=== PATIENT | female | born 1960 | race Caucasian/White ===

== ENCOUNTER → 2016-04-26 | Outpatient (CLI) | payer BC ==
[~2016-04-26] MED LIST: ALPR0.5T PO; CIPR-255 PO; DICY10CA55 PO; FAMO20TA9 PO; IBUP-103 PO; LISI20TA3 PO; METO50TA7 PO; METR-163 PO; MOME6000 INH; PANT40TA PO
--- NOTE | 2016-04-29 14:54 | MAMMOGRAPHY REPORT ---
BILATERAL DIGITAL SCREENING MAMMOGRAM TOMOSYNTHESIS WITH CAD: 04/26/2016 CLINICAL HISTORY: Routine screening. Patient has no complaints. TECHNIQUE: Breast tomosynthesis in addition to standard 2D mammography was performed. Current study was also evaluated with a Computer Aided Detection (CAD) system. COMPARISON: Comparison is made to exams dated: 04/25/2015 mammogram, 06/25/2013 mammogram, 06/24/2012 poncho mogram, 07/25/2010 mammogram, 07/24/2009 mammogram - [facility], and 07/21/2008. BREAST COMPOSITION: The tissue of both breasts is heterogeneously dense, which may obscure small ma sses. FINDINGS: No suspicious masses, calcifications, or areas of architectural distortion are noted in e ither breast. There has been no significant interval change compared to prior exams. IMPRESSION: ACR BI-RADS CATEGORY 1: NEGATIVE There is no mammographic evidence of malignancy. A 1 year screening mammogram is recommended. The p atient will receive written notification of the results. Approximately 10% of breast cancers are not detected with mammography. A negative mammographic repor t should not delay biopsy if a clinically suggestive mass is present. Linda Sandoval M.D. ah/:04/26/2016 16:27:03 Senior Painter: Ming CHOU(R)(M), [facility] letter sent: Normal 1/2 BI-RADS Code: ACR BI-RADS Category 1: Negative
== END | disposition home or self-care (01) ==
LOC: C.MAMM 15:29
PROVIDERS: ATTEND Family Medicine
DX: Z12.31 Encounter for screening mammogram for malignant neoplasm of breast (principal)

== ENCOUNTER 2016-05-06 09:06 | Inpatient (IN) | payer BC ==
[~2016-05-06] VITALS: Ht 160 cm; Wt 65.4 kg
[2016-05-06 09:42] LABS: URINE APPEARANCE CLEAR (CLEAR); URINE BILIRUBIN NEG (NEG); URINE COLOR DK YELLOW; URINE EPITHELIAL CELL AUTO >30 /lpf (0-5); URINE NITRITE NEG (NEG); URINE PH 5.5 (4.5-7.5); URINE SPECIFIC GRAVITY 1.023 (1.000-1.030); UROBILINOGEN NEG (NEG); ZZUR CULT IF INDIC CLEAN CATCH YES
[2016-05-06 09:43] LABS: MANUAL MICROSCOPIC REQUIRED? NO; REVIEW REQ? NO
[2016-05-06] MEDS ORDERED: METO50TA7 PO (09:49)
[2016-05-06] MEDS ORDERED: LISI20TA3 PO (09:49)
[2016-05-06 09:58] LABS: BASO % 0.1 %; BASO ABS # 0.02 K/uL (0-0.2); COMPLETE YES; EOS % 1.2 %; HEMATOCRIT 42.8 % (37-47); IG% 0.3 %; LYMPH % 15.3 %; MEAN CELL VOLUME 85.6 fL (80-100); MEAN CORPUSCULAR HEMOGLOBIN 29.2 pg (25-34); MEAN CORPUSCULAR HGB CONC 34.1 g/dl (32-36); MEAN PLATELET VOLUME 9.6 fL (7.4-10.4); MONO % 6.6 %; NEUT % 76.5 %; PLATELET COUNT 425 K/uL (130-400); WHITE BLOOD COUNT 19.61 K/uL (4.8-10.8)
[2016-05-06] MEDS ORDERED: OPTIRAY 320 IV PRN (10:15)
[2016-05-06 10:18] LABS: BUN/CREATININE RATIO 17.6 (10-20); CALCIUM 9.1 mg/dl (8.5-10.1); CREATININE 0.92 mg/dl (0.60-1.20); POTASSIUM 3.9 mmol/L (3.5-5.1)
[2016-05-06 10:21] LABS: ALB/GLOB RATIO 0.7 (0.9-2)
--- NOTE | 2016-05-06 12:25 | DIAGNOSTIC IMAGING REPORT ---
CT OF THE ABDOMEN AND PELVIS WITH CONTRAST CLINICAL HISTORY: Lower abdominal pain and cramping. COMPARISON STUDY: None. TECHNIQUE: Following IV administration of 94 mL of Optiray-320, axial images of the abdomen and pelvis were obtained from the lung bases to the proximal femurs. Images were reviewed in the axial, sagittal, and coronal planes. IV contrast was administered without complication. CT DOSE: 321.53 mGy.cm FINDINGS: Lung bases are clear. The liver, spleen, adrenal glands, pancreas and right kidney are normal. A 6 mm hypodense lesion within the upper pole of the left kidney is too small to characterize but likely benign. There is no biliary or pancreatic ductal dilatation. There is a splenule. There is no evidence for a bowel obstruction. There is extensive sigmoid diverticulosis. There is moderate wall thickening of the mid sigmoid colon with moderate adjacent infiltration. Note is made of a 2.2 x 1.5 cm rim-enhancing fluid collection within the superior wall of the sigmoid colon. This is consistent with an intramural abscess. There is no free air. Skeletal structures are unremarkable. IMPRESSION: Acute sigmoid diverticulitis with an associated 2.2 x 1.5 cm intramural abscess within the mid sigmoid colon. Moderate inflammation. No free air. Electronically signed by: Leif Celeste M.D. 05/06/2016 11:33 AM Dictated Date/Time: 05/06/2016 11:24 AM
[2016-05-06] MEDS ORDERED: MoRPHine SULFATE 4 MG/ML 1 ML CARP\\VIAL IV STA (12:31)
[2016-05-06] MEDS ORDERED: ONDANSETRON INJ 2 MG/ML 2 ML VIAL IV STA (12:31)
[2016-05-06] MEDS ORDERED: SODIUM CHLORIDE 0.9% 1000ML 1,000 ML IV STA (12:31)
[2016-05-06] MEDS ORDERED: CIPROFLOXACIN 400MG / 200ML D5W IV STA (12:39)
[2016-05-06] MEDS ORDERED: METRONIDAZOLE 500MG / 100ML NSS IV STA (12:39)
[2016-05-06] MEDS ORDERED: ENOXAPARIN 40 MG/0.4 ML SYR SQ SCH (13:45)
[2016-05-06] MEDS ORDERED: DICY10CA55 PO (13:52)
[2016-05-06] MEDS ORDERED: ALPR0.5T PO (13:52)
[2016-05-06] MEDS ORDERED: MOME6000 INH (13:52)
--- NOTE | 2016-05-06 14:10 | History and Physical ---
History & Physical Date & Time of Service: May 06, 2016 at 13:54 Chief Complaint: Lower Intestinal Pain W/ Lower Back Pain Primary Care Physician: Magdiel Zavaleta III, M.D. History of Present Illness Source: patient This is a 55 y/o female with PMHx of HTN and Dyslipidemia who presents to the ED c/o worsening abd pain x 2 days. Pt reports that 2 days ago she developed intermittent "crampy" lower abd pain that did not radiate anywhere. This morning the pain worsened to a constant 6/10 crampy pain with intermittent stabbing pains. She has been eating a regular diet but has noticed that she gets nauseated after eating. BMs have been normal. Pt has never had sxs like this before. Last colonoscopy from 04/2014 was normal. Pt denies fever/chills, diaphoresis, chest pain, SOB, vomiting, hematochezia, melena, bladder issues, LE edema ,calf pain, lightheadedness/dizziness. In the ED, vitals are stable. Pt is afebrile with leukocytosis>19k. CT abd/pelvis + acute diverticulitis with small intramural abscess. Pt is stable and will be admitted for further evaluation and treatment. Past Medical/Surgical History Medical Problems: (1) Dyslipidemia Status: Chronic (2) GERD (gastroesophageal reflux disease) Status: Chronic (3) HTN (hypertension) Status: Chronic Surgical Problems: (1) H/O wisdom tooth extraction Status: Resolved (2) History of tubal ligation Status: Resolved Social History Smoking Status: Former Smoker (10 pack year history; quit 30 years ago) Alcohol Use: none Drug Use: none Marital Status: Housing status: lives with family Multi-Drug Resistant Organisms History of MDRO: No Allergies Coded Allergies: No Known Allergies (Verified , 05/06/16) Home Medications Scheduled Lisinopril (Prinivil), 20 MG PO HS Metoprolol Succ (Toprol Xl) (Toprol-Xl), 75 MG PO HS Mometasone Furoate (Nasal) (Mometasone Furoate), 2 SPRAYS INH BID Scheduled PRN Alprazolam (Xanax), 0.5 MG PO TID PRN for Anxiety Dicyclomine Hcl (Bentyl), 10 MG PO QID PRN for abdominal pain Review of Systems Constitutional: No chills, No fatigue, No fever, No sweats, No weakness Eyes: No worsening of vision Respiratory: No cough, No shortness of breath Cardiovascular: No chest pain, No claudication, No edema Abdomen: + nausea, + pain, No GI bleeding, No constipation, No diarrhea, No vomiting Musculoskeletal: No calf pain, No swelling Genitourinary - Female: No dysuria Neurologic: No weakness Psychiatric: No depression symptoms Endocrine: No fatigue Hematologic / Lymphatic: No abnormal bleeding/bruising Integumentary: No new/changing skin lesions Physical Exam Vital Signs Date Time Temp Pulse Resp B/P Pulse Ox O2 Delivery O2 Flow Rate FiO2 05/06/16 12:45 86 18 141/80 96 Room Air 05/06/16 10:48 74 16 144/88 99 Room Air 05/06/16 09:12 36.7 87 18 121/71 99 Room Air General Appearance: WD/WN, no apparent distress, + pertinent finding (Pt is laying in bed with at bedside) Head: normocephalic, atraumatic Eyes: normal inspection ENT: hearing grossly normal Neck: supple Respiratory/Chest: chest non-tender, lungs clear, normal breath sounds, no respiratory distress Cardiovascular: regular rate, rhythm, no edema, no murmur Abdomen/GI: normal bowel sounds, soft, + tenderness (diffuse; lower>upper) Back: normal inspection Extremities/Musculoskelatal: normal inspection, no calf tenderness, no pedal edema Neurologic/Psych: alert, normal mood/affect, oriented x 3 Skin: normal color, warm/dry Diagnostics Laboratory Results Results Past 24 Hours Test 05/06/16 09:25 05/06/16 13:00 Range/Units White Blood Count 19.61 4.8-10.8 K/uL Red Blood Count 5.00 4.2-5.4 M/uL Hemoglobin 14.6 12.0-16.0 g/dL Hematocrit 42.8 37-47 % Mean Corpuscular Volume 85.6 80-100 fL Mean Corpuscular Hemoglobin 29.2 25-34 pg Mean Corpuscular Hemoglobin Concent 34.1 32-36 g/dl Platelet Count 425 130-400 K/uL Mean Platelet Volume 9.6 7.4-10.4 fL Neutrophils (%) (Auto) 76.5 % Lymphocytes (%) (Auto) 15.3 % Monocytes (%) (Auto) 6.6 % Eosinophils (%) (Auto) 1.2 % Basophils (%) (Auto) 0.1 % Neutrophils # (Auto) 14.99 1.4-6.5 K/uL Lymphocytes # (Auto) 3.00 1.2-3.4 K/uL Monocytes # (Auto) 1.30 0.11-0.59 K/uL Eosinophils # (Auto) 0.24 0-0.5 K/uL Basophils # (Auto) 0.02 0-0.2 K/uL RDW Standard Deviation 41.9 36.4-46.3 fL RDW Coefficient of Variation 13.3 11.5-14.5 % Immature Granulocyte % (Auto) 0.3 % Immature Granulocyte # (Auto) 0.06 0.00-0.02 K/uL Urine Color DK YELLOW Urine Appearance CLEAR CLEAR Urine pH 5.5 4.5-7.5 Urine Specific [place] 1.023 1.000-1.030 Urine Protein TRACE NEG Urine Glucose (UA) NEG NEG Urine Ketones NEG NEG Urine Occult Blood 1+ NEG Urine Nitrite NEG NEG Urine Bilirubin NEG NEG Urine Urobilinogen NEG NEG Urine Leukocyte Esterase NEG NEG Urine WBC (Auto) 1-5 0-5 /hpf Urine RBC (Auto) 5-10 0-4 /hpf Urine Hyaline Casts (Auto) 1-5 0-5 /lpf Urine Epithelial Cells (Auto) >30 0-5 /lpf Urine Bacteria (Auto) 1+ NEG Sodium Level 139 136-145 mmol/L Potassium Level 3.9 3.5-5.1 mmol/L Chloride Level 103 98-107 mmol/L Carbon Dioxide Level 24 21-32 mmol/L Anion Gap 12.0 3-11 mmol/L Blood Urea Nitrogen 16 7-18 mg/dl Creatinine 0.92 0.60-1.20 mg/dl Est Creatinine Clear Calc Drug Dose 63.6 ml/min Estimated GFR () 81.8 Estimated GFR (Non- 70.6 BUN/Creatinine Ratio 17.6 10-20 Random Glucose 88 70-99 mg/dl Calcium Level 9.1 8.5-10.1 mg/dl Total Bilirubin 0.3 0.2-1 mg/dl Aspartate Amino Transf (AST/SGOT) 21 15-37 U/L Alanine Aminotransferase (ALT/SGPT) 28 12-78 U/L Alkaline Phosphatase 85 45-117 U/L Total Protein 8.1 6.4-8.2 gm/dl Albumin 3.3 3.4-5.0 gm/dl Globulin 4.8 2.5-4.0 gm/dl Albumin/Globulin Ratio 0.7 0.9-2 Lipase 175 73-393 U/L Lactic Acid Level 0.7 0.4-2.0 mmol/L Microbiology Results 05/06/16 Urine Culture, Received Pending Diagnostic Radiology CT ABD/PELVIS IMPRESSION: Acute sigmoid diverticulitis with an associated 2.2 x 1.5 cm intramural abscess within the mid sigmoid colon. Moderate inflammation. No free air. Impression Assessment and Plan Diverculitis, ACUTE DIVERTICULITIS/INTRAMURAL ABSCESS pt presents with abd pain assoc with nausea -admit to med/surg -pt is afebrile with leukocytosis>19k -CT abd/pelvis + acute sigmoid diverticulitis with 2.2 x 1.5 cm intramural abscess -cont IVF and Cipro/Flagyl -morphine PRN pain -clear liquid diet -consult surgery, Dr. Mallory-pending input -pt does not appear septic -monitor HTN -BP stable -cont lisinopril and metoprolol -monitor DYSLIPIDEMIA -diet controlled DVT PROPHYLAXIS -subq Lovenox DISPO -Pt seen in collaboration with Dr. Esposito. Please see his addendum for further details. Thanks! ATTENDING NOTE Patient seen & examined at bedside. Reviewed above History/Physical and confirmed the findings in person. Patient comes to ED with worsening abdominal pain with nausea. CT Abdomen/Pelvis shows Sigmoid Diverticulitis with abscess. Case discussed with Dr. Mallory (Surgery) by ED physician and he will follow the patient as advanced manufacturing consultant. Admit to Medical floor. Started Cipro & Flagyl. Pain medication as needed. Patient is FULL CODE. DVT Prophylaxis with SCDs. Patient will be followed by Dr. Rueda. Dennis Esposito MD Level of Care Med/Surg VTE Prophylaxis VTE Risk Assessment Done? Y/N: Yes Risk Level: Low Given or contraindicated: SCD's ( may neeed Surgical intervention)
[2016-05-06] MEDS: MoRPHine SULFATE 4 MG/ML 1 ML CARP\\VIAL IV PRN ×3 (14:26→21:37)
[2016-05-06 15:10] VITALS: BP 137/79; PULSE 84; TEMP 37.2; O2SAT 97
[2016-05-06 15:15] VITALS: Ht 160 cm; Wt 65.4 kg
--- NOTE | 2016-05-06 16:04 | Pre-Operative Consultation ---
History General Date of Service: May 06, 2016. HPI HPI: The patient is a 55 year old female being seen for complicated sigmoid diverticulitis. She was admitted with worsening abdominal pain x 2 days. Pt reports that 2 days ago she developed intermittent "crampy" lower abd pain that did not radiate anywhere. This morning the pain worsened with LLQ stabbing pains. She has nausea after eating. Last colonoscopy from 04/2014 was normal. Pt denies fever/chills, diaphoresis, chest pain, SOB, vomiting, hematochezia, melena, bladder issues, LE edema ,calf pain, lightheadedness/dizziness. Historian: patient Procedure Urgency: Acute Risk Assessment Daily beta chance use?: Yes Beta Chance Details Indication Beta Chance use: hypertension Medical & Surgical History Past Medical History: anxiety, GERD, high cholesterol, hypertension Past Surgical History: tubal ligation Family History Family History: no pertinent family hx Social History Smoking Status: Former Smoker (10 pack year history; quit 30 years ago) Drug Use: none Marital status: Housing status: lives with family Allergies Allergies: Coded Allergies: No Known Allergies (Verified , 05/06/16) Medications Current Inpatient Medications Current Inpatient Medications Medications (Trade) Dose Ordered Sig/Ignacio Route Start Time Stop Time Status Last Admin Dose Admin Ioversol (Optiray 320) 125 ml UD PRN IV 05/06/16 10:15 05/10/16 10:14 Acetaminophen (Tylenol Tab) 650 mg Q4H PRN PO 05/06/16 13:45 06/05/16 13:44 Ondansetron HCl 4 mg 4 mg Q6H PRN IV 05/06/16 13:45 06/05/16 13:44 Sodium Chloride 1,000 ml @ 80 mls/hr [id number] IV 05/06/16 14:00 06/05/16 13:59 Ciprofloxacin/ Dextrose 400 mg/ Prmx 200 ml @ 100 mls/hr Q12@1000,2200 IV 05/06/16 22:00 05/16/16 21:59 Metronidazole/Prmx (Flagyl / Nss/ Premixed Nss) 100 ml @ 100 mls/hr Q8@0400,1200,2000 IV 05/06/16 20:00 05/16/16 19:59 Morphine Sulfate (MoRPHine SULFATE INJ) 4 mg Q3H PRN IV 05/06/16 14:00 05/20/16 13:59 05/06/16 14:26 4 MG Review of Systems Review of Systems Constitutional: denies chills, denies diaphoresis, denies fever, denies weakness Eyes: reports: no symptoms ENT: reports: no symptoms reported Cardiovascular: denies: chest pain, chest pressure, chest tightness, palpitations, syncope Respiratory: denies: cough, short of breath, stridor, wheezing Gastrointestinal: abdominal pain, denies constipation, denies diarrhea, nausea , denies vomiting Genitourinary - Female: reports: no symptoms Musculoskeletal: denies back pain, denies joint pain, denies joint swelling, denies muscle stiffness, denies neck pain Integumentary: denies change in color, denies change in hair/nails, denies dryness, denies lesions, denies lumps, denies rash Neurologic: reports: no symptoms Psychiatric: reports: anxiety, depression Endocrine: denies: cold intolerance, goiter, hair changes, heat intolerance, polyuria Hematologic / Lymphatic: denies: anemia, easy bleeding, easy bruising, gums bleeding, petechiae Allergic / Immunologic: no symptoms Physical Exam Physical Exam General Appearance: + WD/WN, No distress Ears, Nose, Throat: + normal ENT inspection Neck: No abnormal inspection, No lymphadenophy, No stiffness, No tenderness, No tracheal deviation Respiratory: No accessory muscle use, No decreased breath sounds, No rales, No rhonchi, No stridor, No wheezing Cardiovascular: No bradycardia, No diastolic murmur, No gallop/S3, No gallop/S4 , No systolic murmur, No tachycardia Abdomen: + tenderness (mild/moderate LLQ), No abnormal bowel sounds, No distension, No guarding, No hernia, No rebound Extremities: No abnormal range of motion, No calf tenderness, No deformity, No inflammation, No swelling Neurologic/Psychiatric: No disorientation, No motor deficit/weakness, No sensory deficit Skin Characteristics: No abnormal color, No diaphoresis, No jaundice, No pallor , No rash Lymphatic: No abnormal adenopathy Diagnostics Labs Labs Results Past 24 Hours Test 05/06/16 09:25 05/06/16 13:00 Range/Units White Blood Count 19.61 4.8-10.8 K/uL Red Blood Count 5.00 4.2-5.4 M/uL Hemoglobin 14.6 12.0-16.0 g/dL Hematocrit 42.8 37-47 % Mean Corpuscular Volume 85.6 80-100 fL Mean Corpuscular Hemoglobin 29.2 25-34 pg Mean Corpuscular Hemoglobin Concent 34.1 32-36 g/dl Platelet Count 425 130-400 K/uL Mean Platelet Volume 9.6 7.4-10.4 fL Neutrophils (%) (Auto) 76.5 % Lymphocytes (%) (Auto) 15.3 % Monocytes (%) (Auto) 6.6 % Eosinophils (%) (Auto) 1.2 % Basophils (%) (Auto) 0.1 % Neutrophils # (Auto) 14.99 1.4-6.5 K/uL Lymphocytes # (Auto) 3.00 1.2-3.4 K/uL Monocytes # (Auto) 1.30 0.11-0.59 K/uL Eosinophils # (Auto) 0.24 0-0.5 K/uL Basophils # (Auto) 0.02 0-0.2 K/uL RDW Standard Deviation 41.9 36.4-46.3 fL RDW Coefficient of Variation 13.3 11.5-14.5 % Immature Granulocyte % (Auto) 0.3 % Immature Granulocyte # (Auto) 0.06 0.00-0.02 K/uL Urine Color DK YELLOW Urine Appearance CLEAR CLEAR Urine pH 5.5 4.5-7.5 Urine Specific [place] 1.023 1.000-1.030 Urine Protein TRACE NEG Urine Glucose (UA) NEG NEG Urine Ketones NEG NEG Urine Occult Blood 1+ NEG Urine Nitrite NEG NEG Urine Bilirubin NEG NEG Urine Urobilinogen NEG NEG Urine Leukocyte Esterase NEG NEG Urine WBC (Auto) 1-5 0-5 /hpf Urine RBC (Auto) 5-10 0-4 /hpf Urine Hyaline Casts (Auto) 1-5 0-5 /lpf Urine Epithelial Cells (Auto) >30 0-5 /lpf Urine Bacteria (Auto) 1+ NEG Sodium Level 139 136-145 mmol/L Potassium Level 3.9 3.5-5.1 mmol/L Chloride Level 103 98-107 mmol/L Carbon Dioxide Level 24 21-32 mmol/L Anion Gap 12.0 3-11 mmol/L Blood Urea Nitrogen 16 7-18 mg/dl Creatinine 0.92 0.60-1.20 mg/dl Est Creatinine Clear Calc Drug Dose 63.6 ml/min Estimated GFR () 81.8 Estimated GFR (Non- 70.6 BUN/Creatinine Ratio 17.6 10-20 Random Glucose 88 70-99 mg/dl Calcium Level 9.1 8.5-10.1 mg/dl Total Bilirubin 0.3 0.2-1 mg/dl Aspartate Amino Transf (AST/SGOT) 21 15-37 U/L Alanine Aminotransferase (ALT/SGPT) 28 12-78 U/L Alkaline Phosphatase 85 45-117 U/L Total Protein 8.1 6.4-8.2 gm/dl Albumin 3.3 3.4-5.0 gm/dl Globulin 4.8 2.5-4.0 gm/dl Albumin/Globulin Ratio 0.7 0.9-2 Lipase 175 73-393 U/L Lactic Acid Level 0.7 0.4-2.0 mmol/L Microbiology Results 05/06/16 Urine Culture, Received Pending Diagnostic Radiology Diagnostic Radiology CT OF THE ABDOMEN AND PELVIS WITH CONTRAST CLINICAL HISTORY: Lower abdominal pain and cramping. COMPARISON STUDY: None. TECHNIQUE: Following IV administration of 94 mL of Optiray-320, axial images of the abdomen and pelvis were obtained from the lung bases to the proximal femurs. Images were reviewed in the axial, sagittal, and coronal planes. IV contrast was administered without complication. CT DOSE: 321.53 mGy.cm FINDINGS: Lung bases are clear. The liver, spleen, adrenal glands, pancreas and right kidney are normal. A 6 mm hypodense lesion within the upper pole of the left kidney is too small to characterize but likely benign. There is no biliary or pancreatic ductal dilatation. There is a splenule. There is no evidence for a bowel obstruction. There is extensive sigmoid diverticulosis. There is moderate wall thickening of the mid sigmoid colon with moderate adjacent infiltration. Note is made of a 2.2 x 1.5 cm rim-enhancing fluid collection within the superior wall of the sigmoid colon. This is consistent with an intramural abscess. There is no free air. Skeletal structures are unremarkable. IMPRESSION: Acute sigmoid diverticulitis with an associated 2.2 x 1.5 cm intramural abscess within the mid sigmoid colon. Moderate inflammation. No free air. Impression Assessment and Plan Assessment and Plan Acute complicated diverticulitis -IV cipro, flagyl -IVF -abdomen minimally tender -NPO
--- NOTE | 2016-05-06 16:34 | EMERGENCY ROOM VISIT NOTE ---
History First contact with patient: 09:40 Chief Complaint: ABDOMINAL PAIN Stated Complaint: DIVERTICULITIS Nursing Triage Summary: Pt c/o diffuse lower abd pain that radiates to back Pt recently finished zpack for sinus infection Pt also c/o nausea Pt describes pain as cramping, denies dairrhea History of Present Illness The patient is a 55 year old female who presents to the Emergency Room with complaints of lower abdominal pain 2 days. The patient reports that she has had a crampy pain across her lower abdomen worsening over the past 2 days. She rates her discomfort an 8/10. She states that she has the urge to have a bowel movement, but does not feel better after bowel movements. She denies any diarrhea or constipation. She states the pain as 8/10. She has not taken anything for pain at home. She does report that she recently finished a Z-George for upper respiratory symptoms. She states the pain does radiate into her low back. She denies any blood in the stools, nausea, vomiting, fevers/chills, chest pain or shortness of breath. She denies any urinary symptoms or abnormal vaginal discharge. Her last menstrual period was greater than one year ago. Review of Systems A complete 10-point Review of Systems was discussed with the patient, with pertinent positives and negatives listed in the History of Present Illness. All remaining Review of Systems questions can be considered negative unless otherwise specified. Past Medical/Surgical History Medical Problems: (1) Diverticulitis (2) Dyslipidemia (3) GERD (gastroesophageal reflux disease) (4) HTN (hypertension) Surgical Problems: (1) H/O wisdom tooth extraction (2) History of tubal ligation Social History Smoking Status: Former Smoker (10 pack year history; quit 30 years ago) Drug Use: none Marital Status: Current/Historical Medications Scheduled Lisinopril (Prinivil), 20 MG PO HS Metoprolol Succ (Toprol Xl) (Toprol-Xl), 75 MG PO HS Mometasone Furoate (Nasal) (Mometasone Furoate), 2 SPRAYS INH BID Scheduled PRN Alprazolam (Xanax), 0.5 MG PO TID PRN for Anxiety Dicyclomine Hcl (Bentyl), 10 MG PO QID PRN for abdominal pain Allergies Coded Allergies: No Known Allergies (Verified , 05/06/16) Physical Exam Vital Signs Date Time Temp Pulse Resp B/P Pulse Ox O2 Delivery O2 Flow Rate FiO2 05/06/16 12:45 86 18 141/80 96 Room Air 05/06/16 10:48 74 16 144/88 99 Room Air 05/06/16 09:12 36.7 87 18 121/71 99 Room Air Pain Rating (0-10): 4.0 Physical Exam VITALS: Vitals are noted on the nurse's note and reviewed by myself. Vital signs stable. GENERAL: This is a 55-year-old female, in no acute distress, nondiaphoretic, well-developed well-nourished. SKIN: Capillary reflex less than 2 seconds. HEART: Regular rate and rhythm without murmurs gallops or rubs. LUNGS: Clear to auscultation bilaterally without wheezes, rales or rhonchi. ABDOMEN: Positive bowel sounds x 4. Moderate tenderness to palpation over the lower abdomen. No guarding or rebound tenderness. NEURO: Patient was alert and oriented to person place and time. Medical Decision & Procedures ER Provider Diagnostic Interpretation: CT OF THE ABDOMEN AND PELVIS WITH CONTRAST CLINICAL HISTORY: Lower abdominal pain and cramping. COMPARISON STUDY: None. TECHNIQUE: Following IV administration of 94 mL of Optiray-320, axial images of the abdomen and pelvis were obtained from the lung bases to the proximal femurs. Images were reviewed in the axial, sagittal, and coronal planes. IV contrast was administered without complication. CT DOSE: 321.53 mGy.cm FINDINGS: Lung bases are clear. The liver, spleen, adrenal glands, pancreas and right kidney are normal. A 6 mm hypodense lesion within the upper pole of the left kidney is too small to characterize but likely benign. There is no biliary or pancreatic ductal dilatation. There is a splenule. There is no evidence for a bowel obstruction. There is extensive sigmoid diverticulosis. There is moderate wall thickening of the mid sigmoid colon with moderate adjacent infiltration. Note is made of a 2.2 x 1.5 cm rim-enhancing fluid collection within the superior wall of the sigmoid colon. This is consistent with an intramural abscess. There is no free air. Skeletal structures are unremarkable. IMPRESSION: Acute sigmoid diverticulitis with an associated 2.2 x 1.5 cm intramural abscess within the mid sigmoid colon. Moderate inflammation. No free air. Laboratory Results 05/06/16 09:25 Red Blood Count 5.00, Mean Corpuscular Volume 85.6, Mean Corpuscular Hemoglobin 29.2, Mean Corpuscular Hemoglobin Concent 34.1, Mean Platelet Volume 9.6, Neutrophils (%) (Auto) 76.5, Lymphocytes (%) (Auto) 15.3, Monocytes (%) (Auto) 6.6, Eosinophils (%) (Auto) 1.2, Basophils (%) (Auto) 0.1, Neutrophils # (Auto) 14.99, Lymphocytes # (Auto) 3.00, Monocytes # (Auto) 1.30, Eosinophils # (Auto) 0.24, Basophils # (Auto) 0.02 05/06/16 09:25 Test 05/06/16 09:25 05/06/16 13:00 White Blood Count 19.61 K/uL (4.8-10.8) Red Blood Count 5.00 M/uL (4.2-5.4) Hemoglobin 14.6 g/dL (12.0-16.0) Hematocrit 42.8 % (37-47) Mean Corpuscular Volume 85.6 fL (80-100) Mean Corpuscular Hemoglobin 29.2 pg (25-34) Mean Corpuscular Hemoglobin Concent 34.1 g/dl (32-36) Platelet Count 425 K/uL (130-400) Mean Platelet Volume 9.6 fL (7.4-10.4) Neutrophils (%) (Auto) 76.5 % Lymphocytes (%) (Auto) 15.3 % Monocytes (%) (Auto) 6.6 % Eosinophils (%) (Auto) 1.2 % Basophils (%) (Auto) 0.1 % Neutrophils # (Auto) 14.99 K/uL (1.4-6.5) Lymphocytes # (Auto) 3.00 K/uL (1.2-3.4) Monocytes # (Auto) 1.30 K/uL (0.11-0.59) Eosinophils # (Auto) 0.24 K/uL (0-0.5) Basophils # (Auto) 0.02 K/uL (0-0.2) RDW Standard Deviation 41.9 fL (36.4-46.3) RDW Coefficient of Variation 13.3 % (11.5-14.5) Immature Granulocyte % (Auto) 0.3 % Immature Granulocyte # (Auto) 0.06 K/uL (0.00-0.02) Urine Color DK YELLOW Urine Appearance CLEAR (CLEAR) Urine pH 5.5 (4.5-7.5) Urine Specific Garden 1.023 (1.000-1.030) Urine Protein TRACE (NEG) Urine Glucose (UA) NEG (NEG) Urine Ketones NEG (NEG) Urine Occult Blood 1+ (NEG) Urine Nitrite NEG (NEG) Urine Bilirubin NEG (NEG) Urine Urobilinogen NEG (NEG) Urine Leukocyte Esterase NEG (NEG) Urine WBC (Auto) 1-5 /hpf (0-5) Urine RBC (Auto) 5-10 /hpf (0-4) Urine Hyaline Casts (Auto) 1-5 /lpf (0-5) Urine Epithelial Cells (Auto) >30 /lpf (0-5) Urine Bacteria (Auto) 1+ (NEG) Anion Gap 12.0 mmol/L (3-11) Est Creatinine Clear Calc Drug Dose 63.6 ml/min Estimated GFR () 81.8 Estimated GFR (Non- 70.6 BUN/Creatinine Ratio 17.6 (10-20) Calcium Level 9.1 mg/dl (8.5-10.1) Total Bilirubin 0.3 mg/dl (0.2-1) Aspartate Amino Transf (AST/SGOT) 21 U/L (15-37) Alanine Aminotransferase (ALT/SGPT) 28 U/L (12-78) Alkaline Phosphatase 85 U/L (45-117) Total Protein 8.1 gm/dl (6.4-8.2) Albumin 3.3 gm/dl (3.4-5.0) Globulin 4.8 gm/dl (2.5-4.0) Albumin/Globulin Ratio 0.7 (0.9-2) Lipase 175 U/L (73-393) Lactic Acid Level 0.7 mmol/L (0.4-2.0) Medications Administered Medications (Trade) Dose Ordered Sig/Ignacio Route Start Time Stop Time Status Last Admin Dose Admin Morphine Sulfate (MoRPHine SULFATE INJ) 4 mg NOW STAT IV 05/06/16 12:31 05/06/16 12:32 DC 05/06/16 12:49 4 MG Ondansetron HCl 4 mg 4 mg NOW STAT IV 05/06/16 12:31 05/06/16 12:33 DC 05/06/16 12:48 4 MG Sodium Chloride (Nss 1000ml) 1,000 ml @ 999 mls/hr Q1H1M STAT IV 05/06/16 12:31 05/06/16 13:31 DC 05/06/16 12:49 999 MLS/HR Ciprofloxacin/ Dextrose (Cipro / D5w) 400 mg NOW STAT IV 05/06/16 12:39 05/06/16 12:40 DC 05/06/16 12:49 400 MG Metronidazole (Flagyl / Nss) 500 mg NOW STAT IV 05/06/16 12:39 05/06/16 12:40 DC 05/06/16 12:49 500 MG Medical Decision Differential diagnosis includes diverticulitis, appendicitis, perforated viscus , intra-abdominal abscess, gastroenteritis, colitis, among others. The patient was evaluated as above. Labs were drawn and IV access was obtained. Imaging studies were performed and read by radiology as above. The patient was medicated with 4 mg morphine IV and 4 mg Zofran IV. She was hydrated with 1 L normal saline solution. The patient was reassessed multiple times during their stay in the emergency department and remained in stable condition. The patient is a 55-year-old female who presents today complaining of lower abdominal pain. Labs revealed and leukocytosis of 19,000. No concerning electrolyte abnormalities. Urinalysis was not suggestive of infection. The patient is afebrile and hemodynamically stable. CT of the abdomen and pelvis did show acute sigmoid diverticulitis with a small intramural abscess. General surgery was consulted and Dr. Alcazar did not feel that this patient needed surgery at this time. He recommended admitting the patient to medicine to treat with IV antibiotics and surgery consult. I spoke with Dr. Esposito, who agreed to evaluate the patient for admission. Case was discussed with Dr. Banks , ED attending physician, who agreed with my assessment and treatment plan. Impression Primary Impression: Diverticulitis of intestine with abscess Departure Information Dispostion Admitted as an inpatient Condition FAIR Referrals Magdiel Zavaleta III, M.D. (PCP) Forms Call Back Authorization, HOME CARE DOCUMENTATION FORM, IMPORTANT VISIT INFORMATION Patient Instructions [facility]
[2016-05-06] MEDS: SODIUM CHLORIDE 0.9% 1000ML 1,000 ML IV SCH (16:39)
[2016-05-06] MEDS: ONDANSETRON INJ 2 MG/ML 2 ML VIAL IV PRN (19:00)
[2016-05-06] MEDS: METRONIDAZOLE / NSS 500 MG in PREMIXED NSS 100 ML IV SCH (19:54)
[2016-05-06] MEDS: CIPROFLOXACIN / D5W 400 MG in PREMIXED IN D5W 200 ML IV SCH (21:37)
[2016-05-06 23:40] VITALS: BP 124/71; PULSE 101; TEMP 37.6; O2SAT 96
[2016-05-07] MEDS: ACETAMINOPHEN 325 MG TAB PO PRN ×3 (02:04→20:01)
[2016-05-07] MEDS: METRONIDAZOLE / NSS 500 MG in PREMIXED NSS 100 ML IV SCH ×4 (03:47→19:57)
[2016-05-07] MEDS: SODIUM CHLORIDE 0.9% 1000ML 1,000 ML IV SCH ×3 (03:48→21:33)
[2016-05-07 05:42] LABS: HEMATOCRIT 40.4 % (37-47); MEAN CELL VOLUME 85.2 fL (80-100); MEAN CORPUSCULAR HEMOGLOBIN 29.3 pg (25-34); MEAN CORPUSCULAR HGB CONC 34.4 g/dl (32-36); MEAN PLATELET VOLUME 9.4 fL (7.4-10.4); PLATELET COUNT 365 K/uL (130-400); RED BLOOD COUNT 4.74 M/uL (4.2-5.4); WHITE BLOOD COUNT 26.27 K/uL (4.8-10.8)
[2016-05-07 06:36] LABS: BUN/CREATININE RATIO 10.1 (10-20); CALCIUM 8.5 mg/dl (8.5-10.1); CREATININE 0.81 mg/dl (0.60-1.20); POTASSIUM 3.5 mmol/L (3.5-5.1)
[2016-05-07 07:21] VITALS: BP 134/84; PULSE 87; TEMP 37.1; O2SAT 98
[2016-05-07 08:16] VITALS: O2SAT 98
[2016-05-07] MEDS: MoRPHine SULFATE 4 MG/ML 1 ML CARP\\VIAL IV PRN ×2 (10:35→16:56)
[2016-05-07] MEDS: ONDANSETRON INJ 2 MG/ML 2 ML VIAL IV PRN ×2 (10:35→16:56)
[2016-05-07] MEDS: CIPROFLOXACIN / D5W 400 MG in PREMIXED IN D5W 200 ML IV SCH ×2 (10:35→21:33)
[2016-05-07 10:59] VITALS: BP 130/73; PULSE 95; TEMP 36.5; O2SAT 94
--- NOTE | 2016-05-07 11:05 | Surgery Progress Note ---
Surgery Progress Note Date of Service May 07, 2016. Subjective Post OP Day: HD 2 + diet (con't NPO), + feeling well, + pain controlled, No bowel movement, No flatus, No nausea, No vomiting Objective Vital Signs: Date Time Temp Pulse Resp B/P Pulse Ox O2 Delivery O2 Flow Rate FiO2 05/07/16 10:59 36.5 95 16 130/73 94 Room Air 05/07/16 08:16 98 Room Air 05/07/16 07:21 37.1 87 16 134/84 98 Room Air 05/06/16 23:40 37.6 101 14 124/71 96 Room Air 05/06/16 23:20 Room Air 05/06/16 15:15 Room Air 05/06/16 15:15 Room Air 05/06/16 15:10 37.2 84 18 137/79 97 Room Air 05/06/16 14:48 73 18 145/76 96 05/06/16 12:45 86 18 141/80 96 Room Air General Appearance: WD/WN, no apparent distress Head: normocephalic, atraumatic Neck: supple, trachea midline Respiratory/Chest: lungs clear Cardiovascular: regular rate, rhythm Abdomen: normal bowel sounds, non distended, soft, + tenderness Extremities: non-tender, no pedal edema Laboratory Results: Results Past 24 Hours Test 05/06/16 13:00 05/07/16 05:00 Range/Units Lactic Acid Level 0.7 0.4-2.0 mmol/L White Blood Count 26.27 4.8-10.8 K/uL Red Blood Count 4.74 4.2-5.4 M/uL Hemoglobin 13.9 12.0-16.0 g/dL Hematocrit 40.4 37-47 % Mean Corpuscular Volume 85.2 80-100 fL Mean Corpuscular Hemoglobin 29.3 25-34 pg Mean Corpuscular Hemoglobin Concent 34.4 32-36 g/dl RDW Standard Deviation 41.4 36.4-46.3 fL RDW Coefficient of Variation 13.2 11.5-14.5 % Platelet Count 365 130-400 K/uL Mean Platelet Volume 9.4 7.4-10.4 fL Sodium Level 137 136-145 mmol/L Potassium Level 3.5 3.5-5.1 mmol/L Chloride Level 103 98-107 mmol/L Carbon Dioxide Level 24 21-32 mmol/L Anion Gap 10.0 3-11 mmol/L Blood Urea Nitrogen 8 7-18 mg/dl Creatinine 0.81 0.60-1.20 mg/dl Est Creatinine Clear Calc Drug Dose 72.2 ml/min Estimated GFR () 95.4 Estimated GFR (Non- 82.3 BUN/Creatinine Ratio 10.1 10-20 Random Glucose 131 70-99 mg/dl Calcium Level 8.5 8.5-10.1 mg/dl Hepatitis C Antibody Screen NEG NEG Assessment & Plan Acute complicated divereticulitis -keep NPO till pain improves -IV abx -Tmax 37.6
[2016-05-07 14:56] VITALS: BP 120/76; PULSE 93; TEMP 37; O2SAT 97
--- NOTE | 2016-05-07 18:18 | Progress Note ---
Subjective Date of Service: May 07, 2016. Subjective Pt evaluation today including: conversation w/ patient, physical exam, lab review, review of studies, review of inpatient medication list Saw/examined the patient in room 359 Abdominal tenderness persists, lower quadrants No fevers/chills, no n/v/d Problem List Medical Problems: (1) Diverticulitis of intestine with abscess Status: Acute Review of Systems Constitutional: No chills, No fever Abdomen: + pain (lower quadrants), No diarrhea, No nausea, No vomiting Female : No dysuria, No urinary frequency Heme: No abnormal bleeding/bruising Medications Current Inpatient Medications Medications (Trade) Dose Ordered Sig/Ignacio Route Start Time Stop Time Status Last Admin Dose Admin Ioversol (Optiray 320) 125 ml UD PRN IV 05/06/16 10:15 05/10/16 10:14 Acetaminophen (Tylenol Tab) 650 mg Q4H PRN PO 05/06/16 13:45 06/05/16 13:44 05/07/16 12:54 650 MG Ondansetron HCl 4 mg 4 mg Q6H PRN IV 05/06/16 13:45 06/05/16 13:44 05/07/16 16:56 4 MG Sodium Chloride 1,000 ml @ 80 mls/hr [id number] IV 05/06/16 14:00 06/05/16 13:59 05/07/16 03:48 80 MLS/HR Ciprofloxacin/ Dextrose 400 mg/ Prmx 200 ml @ 100 mls/hr Q12@1000,2200 IV 05/06/16 22:00 05/16/16 21:59 05/07/16 10:35 100 MLS/HR Metronidazole/Prmx (Flagyl / Nss/ Premixed Nss) 100 ml @ 100 mls/hr Q8@0400,1200,2000 IV 05/06/16 20:00 05/16/16 19:59 05/07/16 13:44 100 MLS/HR Morphine Sulfate (MoRPHine SULFATE INJ) 4 mg Q3H PRN IV 05/06/16 14:00 05/20/16 13:59 05/07/16 16:56 4 MG Objective Vital Signs Date Time Temp Pulse Resp B/P Pulse Ox O2 Delivery O2 Flow Rate FiO2 05/07/16 15:45 Room Air 05/07/16 14:56 37.0 93 16 120/76 97 Room Air 05/07/16 10:59 36.5 95 16 130/73 94 Room Air 05/07/16 08:16 98 Room Air 05/07/16 07:21 37.1 87 16 134/84 98 Room Air 05/06/16 23:40 37.6 101 14 124/71 96 Room Air 05/06/16 23:20 Room Air Physical Exam General Appearance: no apparent distress Respiratory/Chest: no respiratory distress, no accessory muscle use Cardiovascular: regular rate, rhythm Abdomen: soft, + tenderness Laboratory Results Last 24 Hours Test 05/07/16 05:00 White Blood Count 26.27 K/uL Red Blood Count 4.74 M/uL Hemoglobin 13.9 g/dL Hematocrit 40.4 % Mean Corpuscular Volume 85.2 fL Mean Corpuscular Hemoglobin 29.3 pg Mean Corpuscular Hemoglobin Concent 34.4 g/dl RDW Standard Deviation 41.4 fL RDW Coefficient of Variation 13.2 % Platelet Count 365 K/uL Mean Platelet Volume 9.4 fL Sodium Level 137 mmol/L Potassium Level 3.5 mmol/L Chloride Level 103 mmol/L Carbon Dioxide Level 24 mmol/L Anion Gap 10.0 mmol/L Blood Urea Nitrogen 8 mg/dl Creatinine 0.81 mg/dl Est Creatinine Clear Calc Drug Dose 72.2 ml/min Estimated GFR () 95.4 Estimated GFR (Non- 82.3 BUN/Creatinine Ratio 10.1 Random Glucose 131 mg/dl Calcium Level 8.5 mg/dl Hepatitis C Antibody Screen NEG Assessment and Plan This is a 55 year old female with PMH of HTN presents with acute diverticulitis Acute Sigmoid Diverticulitis * patient presented with lower abdominal pain * Abdominal/Pelvic CT IMPRESSION: Acute sigmoid diverticulitis with an associated 2.2 x 1.5 cm intramural abscess within the mid sigmoid colon. Moderate inflammation. No free air. * Patient on cipro/flagyl, NPO, IVFs * appreciate general surgery input - continue current plan until pain is improved HTN * BP is controlled * currently holding KEVIN-I and b-bridger DVT ppx * SCDs FULL CODE
[2016-05-07 22:45] VITALS: BP 158/77; PULSE 90; TEMP 37.1; O2SAT 99
[2016-05-08] MEDS ORDERED: ACETAMINOPHEN IV 650 MG in EMPTY BAG 0 ML IV PRN
[2016-05-08] MEDS: KETOROLAC TROMETHAMINE 30 MG/ML VIAL IV PRN ×2 (00:08→22:13)
[2016-05-08] MEDS: SODIUM CHLORIDE 0.9% 1000ML 1,000 ML IV SCH ×2 (04:09→16:23)
[2016-05-08] MEDS: METRONIDAZOLE / NSS 500 MG in PREMIXED NSS 100 ML IV SCH ×3 (04:09→20:40)
[2016-05-08 07:03] LABS: HEMATOCRIT 37.6 % (37-47); MEAN CELL VOLUME 84.9 fL (80-100); MEAN CORPUSCULAR HEMOGLOBIN 28.7 pg (25-34); MEAN CORPUSCULAR HGB CONC 33.8 g/dl (32-36); MEAN PLATELET VOLUME 9.3 fL (7.4-10.4); PLATELET COUNT 350 K/uL (130-400); RED BLOOD COUNT 4.43 M/uL (4.2-5.4)
[2016-05-08 07:28] LABS: BUN/CREATININE RATIO 11.6 (10-20); CALCIUM 8.5 mg/dl (8.5-10.1); CREATININE 0.73 mg/dl (0.60-1.20); MAGNESIUM 2.4 mg/dl (1.8-2.4); POTASSIUM 3.3 mmol/L (3.5-5.1)
[2016-05-08 07:57] VITALS: BP 124/76; PULSE 88; TEMP 37.2; O2SAT 96
[2016-05-08 09:25] VITALS: O2SAT 96
[2016-05-08] MEDS: CIPROFLOXACIN / D5W 400 MG in PREMIXED IN D5W 200 ML IV SCH ×2 (10:07→21:51)
[2016-05-08] MEDS ORDERED: POTASSIUM CHLR 20 MEQ / WTR 20 MEQ in PREMIXED WATER 100 ML IV STA (12:48)
--- NOTE | 2016-05-08 12:57 | Surgery Progress Note ---
Surgery Progress Note Date of Service May 08, 2016. Subjective Post OP Day: HD 3 + complaints (pain much improved), + diet (NPO), + feeling well, + flatus, No bowel movement, No nausea, No vomiting Objective Vital Signs: Date Time Temp Pulse Resp B/P Pulse Ox O2 Delivery O2 Flow Rate FiO2 05/08/16 09:25 96 Room Air 05/08/16 07:57 37.2 88 18 124/76 96 Room Air 05/08/16 07:10 Room Air 05/07/16 23:45 Room Air 05/07/16 22:45 37.1 90 14 158/77 99 Room Air 05/07/16 15:45 Room Air 05/07/16 14:56 37.0 93 16 120/76 97 Room Air General Appearance: WD/WN, no apparent distress Head: normocephalic, atraumatic Neck: supple, trachea midline Respiratory/Chest: lungs clear Cardiovascular: regular rate, rhythm Abdomen: normal bowel sounds, non distended, soft, + tenderness (mild) Extremities: non-tender, no pedal edema Laboratory Results: Results Past 24 Hours Test 05/08/16 06:25 Range/Units White Blood Count 14.60 4.8-10.8 K/uL Red Blood Count 4.43 4.2-5.4 M/uL Hemoglobin 12.7 12.0-16.0 g/dL Hematocrit 37.6 37-47 % Mean Corpuscular Volume 84.9 80-100 fL Mean Corpuscular Hemoglobin 28.7 25-34 pg Mean Corpuscular Hemoglobin Concent 33.8 32-36 g/dl RDW Standard Deviation 41.1 36.4-46.3 fL RDW Coefficient of Variation 13.2 11.5-14.5 % Platelet Count 350 130-400 K/uL Mean Platelet Volume 9.3 7.4-10.4 fL Sodium Level 141 136-145 mmol/L Potassium Level 3.3 3.5-5.1 mmol/L Chloride Level 107 98-107 mmol/L Carbon Dioxide Level 24 21-32 mmol/L Anion Gap 10.0 3-11 mmol/L Blood Urea Nitrogen 9 7-18 mg/dl Creatinine 0.73 0.60-1.20 mg/dl Est Creatinine Clear Calc Drug Dose 80.1 ml/min Estimated GFR () 108.2 Estimated GFR (Non- 93.4 BUN/Creatinine Ratio 11.6 10-20 Random Glucose 96 70-99 mg/dl Calcium Level 8.5 8.5-10.1 mg/dl Magnesium Level 2.4 1.8-2.4 mg/dl Assessment & Plan Acute complicated divereticulitis -begin clears -IV abx -afebrile -WBC down
--- NOTE | 2016-05-08 12:58 | Progress Note ---
Subjective Date of Service: May 08, 2016. Subjective Pt evaluation today including: conversation w/ patient, physical exam, lab review, review of studies, review of inpatient medication list Saw/examined the patient in room 359 Pain resolved No nausea/vomiting/diarrhea Problem List Medical Problems: (1) Diverticulitis of intestine with abscess Status: Acute Review of Systems Constitutional: No chills, No fever Respiratory: No cough, No shortness of breath, No sputum Cardiac: No chest pain Abdomen: No diarrhea, No nausea, No pain (improved), No vomiting Musculoskeletal: No joint pain Medications Current Inpatient Medications Medications (Trade) Dose Ordered Sig/Ignacio Route Start Time Stop Time Status Last Admin Dose Admin Ioversol (Optiray 320) 125 ml UD PRN IV 05/06/16 10:15 05/10/16 10:14 Acetaminophen (Tylenol Tab) 650 mg Q4H PRN PO 05/06/16 13:45 06/05/16 13:44 05/07/16 20:01 650 MG Ondansetron HCl 4 mg 4 mg Q6H PRN IV 05/06/16 13:45 06/05/16 13:44 05/07/16 16:56 4 MG Sodium Chloride 1,000 ml @ 80 mls/hr [id number] IV 05/06/16 14:00 06/05/16 13:59 05/08/16 04:09 80 MLS/HR Ciprofloxacin/ Dextrose 400 mg/ Prmx 200 ml @ 100 mls/hr Q12@1000,2200 IV 05/06/16 22:00 05/16/16 21:59 05/08/16 10:07 100 MLS/HR Metronidazole/Prmx (Flagyl / Nss/ Premixed Nss) 100 ml @ 100 mls/hr Q8@0400,1200,2000 IV 05/06/16 20:00 05/16/16 19:59 05/08/16 04:09 100 MLS/HR Morphine Sulfate 4 mg 4 mg Q3H PRN IV 05/06/16 14:00 05/20/16 13:59 05/07/16 16:56 4 MG Acetaminophen/ Empty Bag (Ofirmev IV/ Empty Iv Bag 100ml) 65 ml @ 260 mls/hr Q6H PRN IV 05/08/16 00:00 06/07/16 00:00 05/08/16 12:35 260 MLS/HR Ketorolac Tromethamine 30 mg 30 mg Q6H PRN IV 05/08/16 00:00 05/13/16 00:00 05/08/16 00:08 30 MG Potassium Chloride/Prmx (Kcl 20 Meq / Wtr/Premixed Water) 100 ml @ 50 mls/hr NOW STAT IV 05/08/16 12:48 05/08/16 14:47 UNV Objective Vital Signs Date Time Temp Pulse Resp B/P Pulse Ox O2 Delivery O2 Flow Rate FiO2 05/08/16 09:25 96 Room Air 05/08/16 07:57 37.2 88 18 124/76 96 Room Air 05/08/16 07:10 Room Air 05/07/16 23:45 Room Air 05/07/16 22:45 37.1 90 14 158/77 99 Room Air 05/07/16 15:45 Room Air 05/07/16 14:56 37.0 93 16 120/76 97 Room Air Physical Exam General Appearance: no apparent distress Respiratory/Chest: lungs clear, normal breath sounds, no respiratory distress, no accessory muscle use Cardiovascular: regular rate, rhythm, no edema, no murmur Abdomen: normal bowel sounds, non tender, soft Extremities: normal inspection, no pedal edema Neurologic/Psychiatric: no motor/sensory deficits, alert, normal mood/affect Skin: normal color Laboratory Results Last 24 Hours Test 05/08/16 06:25 White Blood Count 14.60 K/uL Red Blood Count 4.43 M/uL Hemoglobin 12.7 g/dL Hematocrit 37.6 % Mean Corpuscular Volume 84.9 fL Mean Corpuscular Hemoglobin 28.7 pg Mean Corpuscular Hemoglobin Concent 33.8 g/dl RDW Standard Deviation 41.1 fL RDW Coefficient of Variation 13.2 % Platelet Count 350 K/uL Mean Platelet Volume 9.3 fL Sodium Level 141 mmol/L Potassium Level 3.3 mmol/L Chloride Level 107 mmol/L Carbon Dioxide Level 24 mmol/L Anion Gap 10.0 mmol/L Blood Urea Nitrogen 9 mg/dl Creatinine 0.73 mg/dl Est Creatinine Clear Calc Drug Dose 80.1 ml/min Estimated GFR () 108.2 Estimated GFR (Non- 93.4 BUN/Creatinine Ratio 11.6 Random Glucose 96 mg/dl Calcium Level 8.5 mg/dl Magnesium Level 2.4 mg/dl Assessment and Plan This is a 55 year old female with PMH of HTN presents with acute diverticulitis Acute Sigmoid Diverticulitis 05/08 * pain has improved today * no nausea/vomiting * no fevers/chills * leukocytosis improved * continue Cipro/Flagyl * will advance diet to clears today * replace K for hypokalemia 05/07 * patient presented with lower abdominal pain * Abdominal/Pelvic CT IMPRESSION: Acute sigmoid diverticulitis with an associated 2.2 x 1.5 cm intramural abscess within the mid sigmoid colon. Moderate inflammation. No free air. * Patient on cipro/flagyl, NPO, IVFs * appreciate general surgery input - continue current plan until pain is improved HTN * BP is controlled * currently holding KEVIN-I and b-bridger DVT ppx * SCDs FULL CODE
[2016-05-08] MEDS: POTASSIUM CHLR 10MEQ / WTR IV SCH ×2 (15:10→16:22)
[2016-05-08 15:14] VITALS: BP 162/89; PULSE 84; TEMP 36.8; O2SAT 98
[2016-05-08] MEDS ORDERED: LISINOPRIL 20 MG TAB PO STA (15:58)
[2016-05-08 20:40] VITALS: BP 151/87
[2016-05-08] MEDS: ACETAMINOPHEN 325 MG TAB PO PRN (20:44)
[2016-05-08] MEDS: METOPROLOL SUCC 50MG EXT REL TAB PO SCH (21:50)
[2016-05-08 22:55] VITALS: BP 143/85; PULSE 68; TEMP 37.2; O2SAT 96
[2016-05-09] MEDS: METRONIDAZOLE / NSS 500 MG in PREMIXED NSS 100 ML IV SCH ×3 (04:30→20:06)
[2016-05-09] MEDS: SODIUM CHLORIDE 0.9% 1000ML 1,000 ML IV SCH ×2 (04:30→16:02)
[2016-05-09 06:01] LABS: HEMATOCRIT 35.5 % (37-47); MEAN CELL VOLUME 84.1 fL (80-100); MEAN CORPUSCULAR HEMOGLOBIN 28.7 pg (25-34); MEAN CORPUSCULAR HGB CONC 34.1 g/dl (32-36); MEAN PLATELET VOLUME 8.9 fL (7.4-10.4); PLATELET COUNT 369 K/uL (130-400); RED BLOOD COUNT 4.22 M/uL (4.2-5.4); WHITE BLOOD COUNT 12.01 K/uL (4.8-10.8)
[2016-05-09 06:29] LABS: BUN/CREATININE RATIO 11.3 (10-20); CREATININE 0.79 mg/dl (0.60-1.20); MAGNESIUM 2.2 mg/dl (1.8-2.4); POTASSIUM 3.7 mmol/L (3.5-5.1)
--- NOTE | 2016-05-09 07:31 | Surgery Progress Note ---
Surgery Progress Note Date of Service May 09, 2016. Subjective Post OP Day: HD 4 + bowel movement, + diet (clears), + feeling well, + pain controlled, No nausea , No vomiting Objective Vital Signs: Date Time Temp Pulse Resp B/P Pulse Ox O2 Delivery O2 Flow Rate FiO2 05/08/16 23:57 Room Air 05/08/16 22:55 37.2 68 14 143/85 96 Room Air 05/08/16 20:40 151/87 05/08/16 15:25 Room Air 05/08/16 15:14 36.8 84 14 162/89 98 Room Air 05/08/16 09:25 96 Room Air 05/08/16 07:57 37.2 88 18 124/76 96 Room Air General Appearance: WD/WN, no apparent distress Head: normocephalic, atraumatic Neck: supple, trachea midline Respiratory/Chest: lungs clear Cardiovascular: regular rate, rhythm Abdomen: normal bowel sounds, non distended, soft, + tenderness Extremities: non-tender, no pedal edema Laboratory Results: Results Past 24 Hours Test 05/09/16 05:35 Range/Units White Blood Count 12.01 4.8-10.8 K/uL Red Blood Count 4.22 4.2-5.4 M/uL Hemoglobin 12.1 12.0-16.0 g/dL Hematocrit 35.5 37-47 % Mean Corpuscular Volume 84.1 80-100 fL Mean Corpuscular Hemoglobin 28.7 25-34 pg Mean Corpuscular Hemoglobin Concent 34.1 32-36 g/dl RDW Standard Deviation 40.2 36.4-46.3 fL RDW Coefficient of Variation 13.3 11.5-14.5 % Platelet Count 369 130-400 K/uL Mean Platelet Volume 8.9 7.4-10.4 fL Sodium Level 143 136-145 mmol/L Potassium Level 3.7 3.5-5.1 mmol/L Chloride Level 110 98-107 mmol/L Carbon Dioxide Level 25 21-32 mmol/L Anion Gap 8.0 3-11 mmol/L Blood Urea Nitrogen 9 7-18 mg/dl Creatinine 0.79 0.60-1.20 mg/dl Est Creatinine Clear Calc Drug Dose 74.0 ml/min Estimated GFR () 98.4 Estimated GFR (Non- 84.9 BUN/Creatinine Ratio 11.3 10-20 Random Glucose 111 70-99 mg/dl Calcium Level 8.0 8.5-10.1 mg/dl Magnesium Level 2.2 1.8-2.4 mg/dl Assessment & Plan Acute complicated divereticulitis -advance diet -IV abx -afebrile -IV abx at least till tomorrow
--- NOTE | 2016-05-09 07:31 | History and Physical ---
History & Physical Date May 09, 2016. Chief Complaint painful recurrent LIH History of Present Illness The patient is a 55 year old female with complaints of Past Medical/Surgical History Medical Problems: (1) Diverticulitis (2) Dyslipidemia (3) GERD (gastroesophageal reflux disease) (4) HTN (hypertension) Surgical Problems: (1) H/O wisdom tooth extraction (2) History of tubal ligation Additional History Hepatic Disease: No Endocrine Disorder: No Kidney Disease: No Hypertension: No Heart Disease: No Bleeding Tendencies: No Infectious Diseases: No Allergies Coded Allergies: No Known Allergies (Verified , 05/06/16) Home Medications Scheduled Lisinopril (Prinivil), 20 MG PO HS Metoprolol Succ (Toprol Xl) (Toprol-Xl), 75 MG PO HS Mometasone Furoate (Nasal) (Mometasone Furoate), 2 SPRAYS INH BID Scheduled PRN Alprazolam (Xanax), 0.5 MG PO TID PRN for Anxiety Dicyclomine Hcl (Bentyl), 10 MG PO QID PRN for abdominal pain Physical Examination Skin: warm/dry Eyes: EOMI ENT: normal ENT inspection Head: normocephalic Neck: supple Respiratory/Chest: lungs clear Cardiovascular: regular rate, rhythm Abdomen / GI: normal bowel sounds, non tender Back: normal inspection Diagnosis recurrent LIH Plan of Treatment laparoscopic possible open repair of left inguinal hernia with mesh
[2016-05-09 08:01] VITALS: BP 129/83; PULSE 68; TEMP 37; O2SAT 97
[2016-05-09] MEDS ORDERED: METOPROLOL SUCC 50MG EXT REL TAB PO SCH (09:00)
[2016-05-09] MEDS: CIPROFLOXACIN / D5W 400 MG in PREMIXED IN D5W 200 ML IV SCH ×2 (09:52→21:54)
--- NOTE | 2016-05-09 11:23 | Progress Note ---
Subjective Date of Service: May 09, 2016. Subjective Pt evaluation today including: conversation w/ patient, physical exam, lab review, review of studies, review of inpatient medication list Saw/examined the patient in room 359 Pain improved Tolerated clears well No other issues to note; no fevers/chills No nausea/vomiting/diarrhea Problem List Medical Problems: (1) Diverticulitis of intestine with abscess Status: Acute Review of Systems Constitutional: No chills, No fever Respiratory: No shortness of breath Cardiac: No chest pain Abdomen: No diarrhea, No nausea, No pain, No vomiting Medications Current Inpatient Medications Medications (Trade) Dose Ordered Sig/Ignacio Route Start Time Stop Time Status Last Admin Dose Admin Ioversol (Optiray 320) 125 ml UD PRN IV 05/06/16 10:15 05/10/16 10:14 Acetaminophen (Tylenol Tab) 650 mg Q4H PRN PO 05/06/16 13:45 06/05/16 13:44 05/08/16 20:44 650 MG Ondansetron HCl 4 mg 4 mg Q6H PRN IV 05/06/16 13:45 06/05/16 13:44 05/07/16 16:56 4 MG Sodium Chloride 1,000 ml @ 80 mls/hr [id number] IV 05/06/16 14:00 06/05/16 13:59 05/09/16 04:30 80 MLS/HR Ciprofloxacin/ Dextrose 400 mg/ Prmx 200 ml @ 100 mls/hr Q12@1000,2200 IV 05/06/16 22:00 05/16/16 21:59 05/09/16 09:52 100 MLS/HR Metronidazole/Prmx (Flagyl / Nss/ Premixed Nss) 100 ml @ 100 mls/hr Q8@0400,1200,2000 IV 05/06/16 20:00 05/16/16 19:59 05/09/16 04:30 100 MLS/HR Morphine Sulfate 4 mg 4 mg Q3H PRN IV 05/06/16 14:00 05/20/16 13:59 05/07/16 16:56 4 MG Acetaminophen/ Empty Bag (Ofirmev IV/ Empty Iv Bag 100ml) 65 ml @ 260 mls/hr Q6H PRN IV 05/08/16 00:00 06/07/16 00:00 05/08/16 12:35 260 MLS/HR Ketorolac Tromethamine (Toradol Inj) 30 mg Q6H PRN IV 05/08/16 00:00 05/13/16 00:00 05/08/16 22:13 30 MG Lisinopril (Zestril Tab) 20 mg HS PO 05/09/16 21:00 06/08/16 20:59 Metoprolol Succinate (Toprol Xl Tab) 50 mg HS PO 05/09/16 21:00 06/08/16 20:59 05/08/16 21:50 50 MG Objective Vital Signs Date Time Temp Pulse Resp B/P Pulse Ox O2 Delivery O2 Flow Rate FiO2 05/09/16 08:01 37.0 68 16 129/83 97 Room Air 05/09/16 07:25 Room Air 05/08/16 23:57 Room Air 05/08/16 22:55 37.2 68 14 143/85 96 Room Air 05/08/16 20:40 151/87 05/08/16 15:25 Room Air 05/08/16 15:14 36.8 84 14 162/89 98 Room Air Physical Exam General Appearance: no apparent distress Respiratory/Chest: lungs clear, normal breath sounds, no respiratory distress, no accessory muscle use Cardiovascular: regular rate, rhythm, no edema, no murmur Abdomen: normal bowel sounds, non tender, soft Laboratory Results Last 24 Hours Test 05/09/16 05:35 White Blood Count 12.01 K/uL Red Blood Count 4.22 M/uL Hemoglobin 12.1 g/dL Hematocrit 35.5 % Mean Corpuscular Volume 84.1 fL Mean Corpuscular Hemoglobin 28.7 pg Mean Corpuscular Hemoglobin Concent 34.1 g/dl RDW Standard Deviation 40.2 fL RDW Coefficient of Variation 13.3 % Platelet Count 369 K/uL Mean Platelet Volume 8.9 fL Sodium Level 143 mmol/L Potassium Level 3.7 mmol/L Chloride Level 110 mmol/L Carbon Dioxide Level 25 mmol/L Anion Gap 8.0 mmol/L Blood Urea Nitrogen 9 mg/dl Creatinine 0.79 mg/dl Est Creatinine Clear Calc Drug Dose 74.0 ml/min Estimated GFR () 98.4 Estimated GFR (Non- 84.9 BUN/Creatinine Ratio 11.3 Random Glucose 111 mg/dl Calcium Level 8.0 mg/dl Magnesium Level 2.2 mg/dl Assessment and Plan This is a 55 year old female with PMH of HTN presents with acute diverticulitis Acute Complicated Sigmoid Diverticulitis 05/09 * advance diet today to full liquid * WBC trending down * continue IV antibiotics * appreciate surgery input 05/08 * pain has improved today * no nausea/vomiting * no fevers/chills * leukocytosis improved * continue Cipro/Flagyl * will advance diet to clears today * replace K for hypokalemia 05/07 * patient presented with lower abdominal pain * Abdominal/Pelvic CT IMPRESSION: Acute sigmoid diverticulitis with an associated 2.2 x 1.5 cm intramural abscess within the mid sigmoid colon. Moderate inflammation. No free air. * Patient on cipro/flagyl, NPO, IVFs * appreciate general surgery input - continue current plan until pain is improved HTN * BP is controlled * currently holding KEVIN-I and b-bridger DVT ppx * SCDs FULL CODE
[2016-05-09 15:22] VITALS: BP 150/89; PULSE 82; TEMP 37.2; O2SAT 98
[2016-05-09 16:00] VITALS: O2SAT 98
[2016-05-09] MEDS: METOPROLOL SUCC 50MG EXT REL TAB PO SCH (20:55)
[2016-05-09] MEDS ORDERED: LISINOPRIL 20 MG TAB PO SCH (21:00)
[2016-05-09 23:22] VITALS: BP 132/79; PULSE 66; TEMP 37.2; O2SAT 97
[2016-05-10] MEDS: METRONIDAZOLE / NSS 500 MG in PREMIXED NSS 100 ML IV SCH (04:09)
[2016-05-10 07:30] LABS: HEMATOCRIT 37.1 % (37-47); MEAN CELL VOLUME 83.7 fL (80-100); MEAN CORPUSCULAR HEMOGLOBIN 28.4 pg (25-34); PLATELET COUNT 418 K/uL (130-400); RED BLOOD COUNT 4.43 M/uL (4.2-5.4); WHITE BLOOD COUNT 10.98 K/uL (4.8-10.8)
[2016-05-10 08:00] LABS: BUN/CREATININE RATIO 9.2 (10-20); CALCIUM 8.6 mg/dl (8.5-10.1); CREATININE 0.74 mg/dl (0.60-1.20); MAGNESIUM 2.2 mg/dl (1.8-2.4); POTASSIUM 3.8 mmol/L (3.5-5.1)
[2016-05-10 08:14] VITALS: BP 124/79; PULSE 73; TEMP 36.8; O2SAT 97
[2016-05-10] MEDS: SODIUM CHLORIDE 0.9% 1000ML 1,000 ML IV SCH (09:14)
[2016-05-10] MEDS: CIPROFLOXACIN / D5W 400 MG in PREMIXED IN D5W 200 ML IV SCH (09:15)
[2016-05-10] MEDS ORDERED: CIPR-255 PO (09:50)
--- NOTE | 2016-05-10 09:50 | Progress Note ---
Subjective Date of Service: May 10, 2016. Subjective Pt evaluation today including: conversation w/ patient, physical exam, lab review, review of studies, review of inpatient medication list Saw/examined the patient in room 359 Doing well, no abdominal pain/tenderness Tolerating diet well, eager to get home Problem List Medical Problems: (1) Diverticulitis of intestine with abscess Status: Acute Review of Systems Constitutional: No chills, No fever Respiratory: No shortness of breath Cardiac: No chest pain Abdomen: No diarrhea, No nausea, No pain, No vomiting Medications Current Inpatient Medications Medications (Trade) Dose Ordered Sig/Ignacio Route Start Time Stop Time Status Last Admin Dose Admin Ioversol (Optiray 320) 125 ml UD PRN IV 05/06/16 10:15 05/10/16 10:14 Acetaminophen (Tylenol Tab) 650 mg Q4H PRN PO 05/06/16 13:45 06/05/16 13:44 05/08/16 20:44 650 MG Ondansetron HCl 4 mg 4 mg Q6H PRN IV 05/06/16 13:45 06/05/16 13:44 05/07/16 16:56 4 MG Sodium Chloride 1,000 ml @ 80 mls/hr [id number] IV 05/06/16 14:00 06/05/16 13:59 05/10/16 09:14 80 MLS/HR Ciprofloxacin/ Dextrose 400 mg/ Prmx 200 ml @ 100 mls/hr Q12@1000,2200 IV 05/06/16 22:00 05/16/16 21:59 05/10/16 09:15 100 MLS/HR Metronidazole/Prmx (Flagyl / Nss/ Premixed Nss) 100 ml @ 100 mls/hr Q8@0400,1200,2000 IV 05/06/16 20:00 05/16/16 19:59 05/10/16 04:09 100 MLS/HR Morphine Sulfate 4 mg 4 mg Q3H PRN IV 05/06/16 14:00 05/20/16 13:59 05/07/16 16:56 4 MG Acetaminophen/ Empty Bag (Ofirmev IV/ Empty Iv Bag 100ml) 65 ml @ 260 mls/hr Q6H PRN IV 05/08/16 00:00 06/07/16 00:00 05/08/16 12:35 260 MLS/HR Ketorolac Tromethamine (Toradol Inj) 30 mg Q6H PRN IV 05/08/16 00:00 05/13/16 00:00 05/08/16 22:13 30 MG Lisinopril (Zestril Tab) 20 mg HS PO 05/09/16 21:00 06/08/16 20:59 05/09/16 20:55 20 MG Metoprolol Succinate (Toprol Xl Tab) 50 mg HS PO 05/09/16 21:00 06/08/16 20:59 05/09/16 20:55 50 MG Objective Vital Signs Date Time Temp Pulse Resp B/P Pulse Ox O2 Delivery O2 Flow Rate FiO2 05/10/16 08:14 36.8 73 16 124/79 97 Room Air 05/09/16 23:22 37.2 66 16 132/79 97 Room Air 05/09/16 19:55 Room Air 05/09/16 16:00 98 Room Air 05/09/16 15:22 37.2 82 18 150/89 98 Room Air Physical Exam General Appearance: no apparent distress Respiratory/Chest: lungs clear, normal breath sounds, no respiratory distress, no accessory muscle use Cardiovascular: regular rate, rhythm, no edema, no murmur Abdomen: normal bowel sounds, non tender, soft Laboratory Results Last 24 Hours Test 05/10/16 06:40 White Blood Count 10.98 K/uL Red Blood Count 4.43 M/uL Hemoglobin 12.6 g/dL Hematocrit 37.1 % Mean Corpuscular Volume 83.7 fL Mean Corpuscular Hemoglobin 28.4 pg Mean Corpuscular Hemoglobin Concent 34.0 g/dl RDW Standard Deviation 39.6 fL RDW Coefficient of Variation 13.1 % Platelet Count 418 K/uL Mean Platelet Volume 9.0 fL Sodium Level 144 mmol/L Potassium Level 3.8 mmol/L Chloride Level 111 mmol/L Carbon Dioxide Level 22 mmol/L Anion Gap 11.0 mmol/L Blood Urea Nitrogen 7 mg/dl Creatinine 0.74 mg/dl Est Creatinine Clear Calc Drug Dose 79.0 ml/min Estimated GFR () 106.5 Estimated GFR (Non- 91.8 BUN/Creatinine Ratio 9.2 Random Glucose 105 mg/dl Calcium Level 8.6 mg/dl Magnesium Level 2.2 mg/dl Assessment and Plan This is a 55 year old female with PMH of HTN presents with acute diverticulitis Acute Complicated Sigmoid Diverticulitis 05/10 * patient doing well * WBC trending down * tolerating diet * appreciate surgical input * likely d/c home today on oral antibiotics to total 14 days * outpatient PCP and general surgery f/u 05/09 * advance diet today to full liquid * WBC trending down * continue IV antibiotics * appreciate surgery input 05/08 * pain has improved today * no nausea/vomiting * no fevers/chills * leukocytosis improved * continue Cipro/Flagyl * will advance diet to clears today * replace K for hypokalemia 05/07 * patient presented with lower abdominal pain * Abdominal/Pelvic CT IMPRESSION: Acute sigmoid diverticulitis with an associated 2.2 x 1.5 cm intramural abscess within the mid sigmoid colon. Moderate inflammation. No free air. * Patient on cipro/flagyl, NPO, IVFs * appreciate general surgery input - continue current plan until pain is improved HTN * BP is controlled * restarted home meds DVT ppx * SCDs FULL CODE
[2016-05-10] MEDS ORDERED: METR-163 PO (09:51)
--- NOTE | 2016-05-10 09:56 | Discharge Instructions ---
Discharge Instructions Admission Reason for Admission: Diverticulitis Discharge Discharge Diagnosis / Problem: Aucte Complicated Sigmoid Diverticulitis Discharge Goals Goal(s): Decrease discomfort, Improve function, Diagnostic testing, Therapeutic intervention Activity Recommendations Activity Limitations: resume your previous activity . Instructions / Follow-Up Instructions / Follow-Up Please follow-up with Dr. Zavaleta on May 13 @ 11:10AM Take Cipro and Flaygl (antibiotics) for 10 more days as prescribed (please complete this course fully) Follow this diet: (increase fiber after this episode is over) [email or web address] (please print for patient) Current Hospital Diet Patient's current hospital diet: Full Liquid Diet Discharge Diet Recommended Diet: Low Fiber Diet (for now; then increase fiber after the diverticulitis episode) Pending Studies Studies pending at discharge: no Medical Emergencies . Who to Call and When: Medical Emergencies: If at any time you feel your situation is an emergency, please call 911 immediately. . Non-Emergent Contact Non-Emergency issues call your: Primary Care Provider . . "Provider Documentation" section prepared by Phyllis Weller. VTE Core Measure Inpt VTE Proph given/why not?: SCD's ( may neeed Surgical intervention)
[2016-05-10 10:08] VITALS: BP 124/79; PULSE 73; TEMP 36.8; O2SAT 97
--- NOTE | 2016-05-10 10:57 | Surgery Progress Note ---
Surgery Progress Note Date of Service May 10, 2016. Subjective Post OP Day: HD 5 + diet, + feeling well, No complaints Objective Vital Signs: Date Time Temp Pulse Resp B/P Pulse Ox O2 Delivery O2 Flow Rate FiO2 05/10/16 10:08 36.8 73 16 97 Room Air 05/10/16 08:14 36.8 73 16 124/79 97 Room Air 05/10/16 08:00 Room Air 05/09/16 23:22 37.2 66 16 132/79 97 Room Air 05/09/16 19:55 Room Air 05/09/16 16:00 98 Room Air 05/09/16 15:22 37.2 82 18 150/89 98 Room Air General Appearance: WD/WN, no apparent distress Head: normocephalic, atraumatic Neck: supple, trachea midline Respiratory/Chest: lungs clear Cardiovascular: regular rate, rhythm Abdomen: normal bowel sounds, non tender, non distended, soft Extremities: non-tender, no pedal edema Laboratory Results: Results Past 24 Hours Test 05/10/16 06:40 Range/Units White Blood Count 10.98 4.8-10.8 K/uL Red Blood Count 4.43 4.2-5.4 M/uL Hemoglobin 12.6 12.0-16.0 g/dL Hematocrit 37.1 37-47 % Mean Corpuscular Volume 83.7 80-100 fL Mean Corpuscular Hemoglobin 28.4 25-34 pg Mean Corpuscular Hemoglobin Concent 34.0 32-36 g/dl RDW Standard Deviation 39.6 36.4-46.3 fL RDW Coefficient of Variation 13.1 11.5-14.5 % Platelet Count 418 130-400 K/uL Mean Platelet Volume 9.0 7.4-10.4 fL Sodium Level 144 136-145 mmol/L Potassium Level 3.8 3.5-5.1 mmol/L Chloride Level 111 98-107 mmol/L Carbon Dioxide Level 22 21-32 mmol/L Anion Gap 11.0 3-11 mmol/L Blood Urea Nitrogen 7 7-18 mg/dl Creatinine 0.74 0.60-1.20 mg/dl Est Creatinine Clear Calc Drug Dose 79.0 ml/min Estimated GFR () 106.5 Estimated GFR (Non- 91.8 BUN/Creatinine Ratio 9.2 10-20 Random Glucose 105 70-99 mg/dl Calcium Level 8.6 8.5-10.1 mg/dl Magnesium Level 2.2 1.8-2.4 mg/dl Assessment & Plan Acute complicated divereticulitis -advance diet -po abx -afebrile -home -F/U 2 weeks my office
--- NOTE | 2016-05-11 15:49 | Discharge Summary ---
Discharge Summary Admission Date: May 06, 2016 at 13:47 Discharge Date: May 10, 2016 Discharge Disposition: Home Principal Diagnosis: Acute Complicated Sigmoid Diverticulitis Medication Reconciliation New Medications: Ciprofloxacin Hcl (Cipro) 500 Mg Tab 500 MG PO BID for 10 Days, #20 TAB Metronidazole (Flagyl) 500 Mg Tab 500 MG PO TID for 10 Days, #30 TAB Continued Medications: Alprazolam (Xanax) 0.5 Mg Tab 0.5 MG PO TID PRN for Anxiety, TAB Dicyclomine Hcl (Bentyl) 10 Mg Cap 10 MG PO QID PRN for abdominal pain, CAP Lisinopril (Prinivil) 20 Mg Tab 20 MG PO HS, TAB Metoprolol Succ (Toprol Xl) (Toprol-Xl) 50 Mg Tabcr 75 MG PO HS, #30 TAB Mometasone Furoate (Nasal) (Mometasone Furoate) 50 Mcg/Act Spr 2 SPRAYS INH BID Admission Information HPI (per Admitting provider): This is a 55 y/o female with PMHx of HTN and Dyslipidemia who presents to the ED c/o worsening abd pain x 2 days. Pt reports that 2 days ago she developed intermittent "crampy" lower abd pain that did not radiate anywhere. This morning the pain worsened to a constant 6/10 crampy pain with intermittent stabbing pains. She has been eating a regular diet but has noticed that she gets nauseated after eating. BMs have been normal. Pt has never had sxs like this before. Last colonoscopy from 04/2014 was normal. Pt denies fever/chills, diaphoresis, chest pain, SOB, vomiting, hematochezia, melena, bladder issues, LE edema ,calf pain, lightheadedness/dizziness. In the ED, vitals are stable. Pt is afebrile with leukocytosis>19k. CT abd/pelvis + acute diverticulitis with small intramural abscess. Pt is stable and will be admitted for further evaluation and treatment. Physical Exam (per Admitting): General Appearance: WD/WN, no apparent distress, + pertinent finding (Pt is laying in bed with at bedside) Head: normocephalic, atraumatic Eyes: normal inspection ENT: hearing grossly normal Neck: supple Respiratory/Chest: chest non-tender, lungs clear, normal breath sounds, no respiratory distress Cardiovascular: regular rate, rhythm, no edema, no murmur Abdomen/GI: normal bowel sounds, soft, + tenderness (diffuse; lower>upper) Back: normal inspection Extremities/Musculoskelatal: normal inspection, no calf tenderness, no pedal edema Neurologic/Psych: alert, normal mood/affect, oriented x 3 Skin: normal color, warm/dry Hospital Course This is a 55 year old female with PMH of HTN presents with acute diverticulitis Acute Complicated Sigmoid Diverticulitis 05/10 * patient doing well * WBC trending down * tolerating diet * appreciate surgical input * likely d/c home today on oral antibiotics to total 14 days * outpatient PCP and general surgery f/u 05/09 * advance diet today to full liquid * WBC trending down * continue IV antibiotics * appreciate surgery input 05/08 * pain has improved today * no nausea/vomiting * no fevers/chills * leukocytosis improved * continue Cipro/Flagyl * will advance diet to clears today * replace K for hypokalemia 05/07 * patient presented with lower abdominal pain * Abdominal/Pelvic CT IMPRESSION: Acute sigmoid diverticulitis with an associated 2.2 x 1.5 cm intramural abscess within the mid sigmoid colon. Moderate inflammation. No free air. * Patient on cipro/flagyl, NPO, IVFs * appreciate general surgery input - continue current plan until pain is improved HTN * BP is controlled * restarted home meds DVT ppx * SCDs FULL CODE Total time spent on discharge = 36 minutes This includes examination of the patient, discharge planning, medication reconciliation, and communication with other providers. Discharge Instructions Please follow-up with Dr. Zavaleta on May 13 @ 11:10AM Take Cipro and Flaygl (antibiotics) for 10 more days as prescribed (please complete this course fully)
== END 2016-05-10 12:42 | disposition home or self-care (01) | DRG 392 ==
LOC: ENRESERVDT → ENRESERVTM → C.EDB 09:07 → C.MSW 13:47
PROVIDERS: ADMIT Emergency Medicine; ATTEND Family Medicine
DX: K57.20 Diverticulitis of large intestine with perforation and abscess without bleeding (principal); I10 Essential (primary) hypertension; M54.5 Low back pain; K21.9 Gastro-esophageal reflux disease without esophagitis; E78.00 Pure hypercholesterolemia, unspecified; E78.5 Hyperlipidemia, unspecified; K40.91 Unilateral inguinal hernia, without obstruction or gangrene, recurrent; E87.6 Hypokalemia; F41.9 Anxiety disorder, unspecified; Z87.891 Personal history of nicotine dependence; Z79.899 Other long term (current) drug therapy

== ENCOUNTER 2016-11-17 13:59 | Emergency (ER) | payer BC ==
[~2016-11-17] VITALS: Ht 160 cm; Wt 58.4 kg
[~2016-11-17 13:59] MED LIST changes: -FAMO20TA9 PO; -IBUP-103 PO; -METR-163 PO; -PANT40TA PO
[2016-11-17 14:05] VITALS: Ht 160 cm; Wt 58.4 kg
[2016-11-17 14:45] LABS: BASO % 0.2 %; BASO ABS # 0.03 K/uL (0-0.2); COMPLETE YES; HEMATOCRIT 40.5 % (37-47); IG% 0.3 %; LYMPH % 15.6 %; LYMPH ABS # 2.38 K/uL (1.2-3.4); MEAN CELL VOLUME 86.5 fL (80-100); MEAN CORPUSCULAR HEMOGLOBIN 29.1 pg (25-34); MEAN CORPUSCULAR HGB CONC 33.6 g/dl (32-36); MEAN PLATELET VOLUME 9.2 fL (7.4-10.4); MONO % 6.9 %; PLATELET COUNT 444 K/uL (130-400); RED BLOOD COUNT 4.68 M/uL (4.2-5.4); WHITE BLOOD COUNT 15.28 K/uL (4.8-10.8)
[2016-11-17] MEDS ORDERED: SODIUM CHLORIDE 0.9% 1000ML 1,000 ML IV STA (14:49)
--- NOTE | 2016-11-17 14:50 | DIAGNOSTIC IMAGING REPORT ---
CHEST 2 VIEWS ROUTINE CLINICAL HISTORY: upper abdominal/chest pain pain COMPARISON STUDY: No previous studies for comparison. FINDINGS: The bones soft tissues and hemidiaphragms are normal. The cardiomediastinal silhouette is normal. The lungs are clear. The pulmonary vasculature is normal. IMPRESSION: Negative chest. The above report was generated using voice recognition software. It may contain grammatical, syntax or spelling errors. Electronically signed by: Antonio Waters M.D. 11/17/2016 2:49 PM Dictated Date/Time: 11/17/2016 2:48 PM
[2016-11-17 14:54] LABS: ALT/SGPT 24 U/L (12-78); AST/SGOT 11 U/L (15-37); BLOOD UREA NITROGEN 13 mg/dl (7-18); BUN/CREATININE RATIO 17.7 (10-20); CALCIUM 9.3 mg/dl (8.5-10.1); CARBON DIOXIDE 31 mmol/L (21-32); CHLORIDE 104 mmol/L (98-107); CREATININE 0.74 mg/dl (0.60-1.20); GLUCOSE 88 mg/dl (70-99); POTASSIUM 3.6 mmol/L (3.5-5.1); SODIUM 141 mmol/L (136-145)
[2016-11-17 15:05] LABS: ALB/GLOB RATIO 0.9 (0.9-2); ALKALINE PHOSPHATASE 71 U/L (45-117); THYROID STIMULATING HORMONE 0.342 uIu/ml (0.300-4.500)
--- NOTE | 2016-11-17 15:31 | EMERGENCY ROOM VISIT NOTE ---
History First contact with patient: 14:13 Chief Complaint: GI ASSESSMENT Stated Complaint: ACID REFLUX W/BACK PAIN-REFERRED BY MARTHA LOVETT Nursing Triage Summary: Pt states she woke this am with acid reflux and it's not going away, "I started getting back pain with it at 1100am". Pain in upper back bilaterally. Denies n/v/d History of Present Illness The patient is a 56 year old female who presents to the Emergency Room with complaints of acid reflux and upper abdominal pain radiating to her upper back since this morning. The patient states she called Dr. Aguilar's with, and was going to attempt to be seen there, however received a phone call back from the nurse who advised her to come to the emergency department for more thorough evaluation. The patient states on October 07 of this year, she did go through colorectal surgery, where she had a portion of her large bowel removed. She states she has been taking a lot of Motrin due to abdominal wall discomfort. The patient does report taking approximately 400 mg of Motrin every 4-5 hours for the past 5 days. The patient states her last dose was last night. The patient states her bowel movements have been normal, and her last one was this morning. She denies nausea, vomiting, headache, dizziness, chest pain, dyspnea. The patient describes the pain as in the middle of the upper abdomen, radiating through the back to her mid to upper back. The patient describes this pain as burning and "sour". She states the burning sensation does radiate from her mid upper abdomen to the middle of her chest. The patient rates the pain 5/10. The patient does describe a sensation of spasms in the middle of her chest, which she believes are coming from her esophagus. The patient states her diet has not changed significantly, however she did have a burger with no pedicles and brownies yesterday. The patient tried taking Pepcid and drinking warm tea this morning, without improvement in her symptoms. She states that approximately 11:00, she began taking dicyclomine. She states this did not help either. The patient states proximally 2 hours later, she did take 2 Tums, which also did not help with her symptoms. The patient states she does feel like since her surgery, her hair has been falling out more frequently. She denies significant fatigue, body aches, or other concerning symptoms. Review of Systems A complete 10 point review of systems was reviewed with the patient with pertinent positives and negatives as per history of present illness. All else were negative. Past Medical/Surgical History Medical Problems: (1) Diverticulitis (2) Dyslipidemia (3) GERD (gastroesophageal reflux disease) (4) HTN (hypertension) Surgical Problems: (1) H/O wisdom tooth extraction (2) History of tubal ligation Social History Smoking Status: Former Smoker Drug Use: none Marital Status: Current/Historical Medications Scheduled Famotidine (Pepcid), 1 TAB PO BID Ibuprofen Tab (Advil), 400 MG PO 2200 Lisinopril (Prinivil), 20 MG PO HS Metoprolol Succ (Toprol Xl) (Toprol-Xl), 75 MG PO HS Pantoprazole (Protonix), 40 MG PO DAILY Scheduled PRN Alprazolam (Xanax), 0.5 MG PO TID PRN for Anxiety Dicyclomine Hcl (Bentyl), 10 MG PO QID PRN for abdominal pain Physical Exam Vital Signs Date Time Temp Pulse Resp B/P (MAP) Pulse Ox O2 Delivery O2 Flow Rate FiO2 11/17/16 16:55 70 18 148/99 100 Room Air 11/17/16 16:55 36.7 70 18 148/99 100 11/17/16 15:48 72 18 153/104 100 Room Air 11/17/16 14:05 36.7 75 19 146/89 100 Room Air Physical Exam VITALS: Vitals are noted on the nurse's note and reviewed by myself. Vital signs stable. GENERAL: This is a 56-year-old female, in no acute distress, nondiaphoretic, well-developed well-nourished. SKIN: The skin was without rashes, erythema, edema, or bruising. There is no tenting of the skin. Capillary reflex less than 2 seconds. HEAD: Normocephalic atraumatic. EARS: External auditory canals clear, tympanic membranes pearly aguilar without erythema or effusion bilaterally. EYES: Pupils equal round and reactive to light and accommodation. Conjunctivae without injection, sclerae without icterus. Extraocular movements intact. NOSE: Patent, turbinates without inflammation or discharge. No sinus tenderness. MOUTH: Mucous membranes moist. Tonsils are not enlarged. Pharynx without erythema or exudate. Uvula midline. Airway patent. Tongue does not deviate. NECK: Supple without nuchal rigidity. No lymphadenopathy. No thyromegaly. Cervical spine is nontender. No JVD. HEART: Regular rate and rhythm without murmurs gallops or rubs. LUNGS: Clear to auscultation bilaterally without wheezes, rales or rhonchi. No dullness to percussion. No retractions or accessory muscle use. ABDOMEN: Positive bowel sounds x 4. Normal tympanic percussion. The patient is mildly tender in the epigastric region. Soft, without masses or organomegaly. Kapoor sign negative. No guarding or rebound tenderness. MUSCULOSKELETAL: No muscle atrophy, erythema, or edema noted. Full range of motion without joint tenderness in all extremities. No tenderness to palpation. Normal gait. Strength 5/5 throughout. NEURO: Patient was alert and oriented to person place and time. Normal sensation to light and sharp touch. Deep tendon reflexes 2+ throughout. No focal neurological deficits. Medical Decision & Procedures ER Provider Diagnostic Interpretation: Labs showed mildly elevated white blood cell count and platelet count. The patient states this is chronic. She states normally her white blood cell count runs between 15,000 and 18,000. Slightly elevated LDH, slightly elevated CRP. The patient's lipase is negative at 294. CXR: FINDINGS: The bones soft tissues and hemidiaphragms are normal. The cardiomediastinal silhouette is normal. The lungs are clear. The pulmonary vasculature is normal. IMPRESSION: Negative chest. US RUQ: FINDINGS: Pancreas: The pancreas demonstrates a normal echotexture. Liver: Unremarkable. Gallbladder: No gallbladder wall thickening. No gallstones. CBD: 3 mm Right kidney: No hydronephrosis. IMPRESSION: No significant abnormality identified within the within the right upper quadrant. Laboratory Results 11/17/16 14:15 Red Blood Count 4.68, Mean Corpuscular Volume 86.5, Mean Corpuscular Hemoglobin 29.1, Mean Corpuscular Hemoglobin Concent 33.6, Mean Platelet Volume 9.2, Neutrophils (%) (Auto) 75.0, Lymphocytes (%) (Auto) 15.6, Monocytes (%) (Auto) 6.9, Eosinophils (%) (Auto) 2.0, Basophils (%) (Auto) 0.2, Neutrophils # (Auto) 11.46, Lymphocytes # (Auto) 2.38, Monocytes # (Auto) 1.06, Eosinophils # (Auto) 0.30, Basophils # (Auto) 0.03 11/17/16 14:15 Test 11/17/16 14:15 11/17/16 14:26 White Blood Count 15.28 K/uL (4.8-10.8) Red Blood Count 4.68 M/uL (4.2-5.4) Hemoglobin 13.6 g/dL (12.0-16.0) Hematocrit 40.5 % (37-47) Mean Corpuscular Volume 86.5 fL (80-100) Mean Corpuscular Hemoglobin 29.1 pg (25-34) Mean Corpuscular Hemoglobin Concent 33.6 g/dl (32-36) Platelet Count 444 K/uL (130-400) Mean Platelet Volume 9.2 fL (7.4-10.4) Neutrophils (%) (Auto) 75.0 % Lymphocytes (%) (Auto) 15.6 % Monocytes (%) (Auto) 6.9 % Eosinophils (%) (Auto) 2.0 % Basophils (%) (Auto) 0.2 % Neutrophils # (Auto) 11.46 K/uL (1.4-6.5) Lymphocytes # (Auto) 2.38 K/uL (1.2-3.4) Monocytes # (Auto) 1.06 K/uL (0.11-0.59) Eosinophils # (Auto) 0.30 K/uL (0-0.5) Basophils # (Auto) 0.03 K/uL (0-0.2) RDW Standard Deviation 44.3 fL (36.4-46.3) RDW Coefficient of Variation 14.1 % (11.5-14.5) Immature Granulocyte % (Auto) 0.3 % Immature Granulocyte # (Auto) 0.05 K/uL (0.00-0.02) Anion Gap 6.0 mmol/L (3-11) Est Creatinine Clear Calc Drug Dose 71.0 ml/min Estimated GFR () 105.7 Estimated GFR (Non- 91.2 BUN/Creatinine Ratio 17.7 (10-20) Calcium Level 9.3 mg/dl (8.5-10.1) Total Bilirubin 0.2 mg/dl (0.2-1) Aspartate Amino Transf (AST/SGOT) 11 U/L (15-37) Alanine Aminotransferase (ALT/SGPT) 24 U/L (12-78) Alkaline Phosphatase 71 U/L (45-117) Lactate Dehydrogenase 251 U/L (84-246) Creatine Kinase MB 0.7 ng/ml (0.5-3.6) Troponin I < 0.015 ng/ml (0-0.045) C-Reactive Protein 1.43 mg/dl (0-0.29) Total Protein 7.7 gm/dl (6.4-8.2) Albumin 3.6 gm/dl (3.4-5.0) Globulin 4.1 gm/dl (2.5-4.0) Albumin/Globulin Ratio 0.9 (0.9-2) Lipase 294 U/L (73-393) Thyroid Stimulating Hormone (TSH) 0.342 uIu/ml (0.300-4.500) Creatine Kinase MB Ratio (0-3.0) Medications Administered Medications (Trade) Dose Ordered Sig/Ignacio Route Start Time Stop Time Status Last Admin Dose Admin Sodium Chloride 1,000 ml @ 999 mls/hr Q1H1M STAT IV 11/17/16 14:49 11/17/16 15:49 DC 11/17/16 14:56 999 MLS/HR Famotidine (Pepcid 20mg/100 ml) 20 mg ONE STAT IV 11/17/16 15:56 11/17/16 15:58 DC 11/17/16 16:03 20 MG Al Hydroxide/Mg Hydroxide (Maalox Susp) 30 ml STK-MED ONCE .ROUTE 11/17/16 16:02 11/17/16 16:03 DC 11/17/16 16:04 30 ML Lidocaine HCl (Viscous Lidocaine 2% Soln) 20 ml STK-MED ONCE .ROUTE 11/17/16 16:02 11/17/16 16:03 DC 11/17/16 16:04 20 ML ED Course The patient was seen and evaluated as above. Initial Labs, EKG, CXR, and ultrasound ordered to evaluate symptoms. Pt. declined pain medication at this time. 1L NSS solution bolus given. The patient does note mild improvement in symptoms. I reviewed all results and discussed them with the patient and Dr. Vargas. The patient was given 20mg Pepcid and a GI cocktail for her symptoms. She notes significant improvement with these medications. I discussed the likelihood that the patient is experiencing gastritis related to NSAID use. The patient was discharged home in good condition. Medical Decision Throughout the course of the patient's care, I considered etiologies including: Acute pancreatitis, acute cholecystitis, cholelithiasis, gastritis, reflux, gastric ulcer, bowel obstruction, acute coronary syndrome, pulmonary embolism, malignancy, and others. Based on the patient's equivocal labs and improvement with emergency department course and medications, I do feel that the patient's symptoms likely are from a gastritis due to NSAID use. I did encourage the patient to follow up outpatient with her PCP and surgeon for further evaluation and management. I did encourage her to return to the emergency department for any worsening symptoms. Impression Primary Impression: Gastritis Additional Impression: GERD (gastroesophageal reflux disease) Departure Information Dispostion Home / Self-Care Condition GOOD Prescriptions Famotidine (PEPCID) 20 Mg Tab 1 TAB PO BID, #60 TAB Prov: Shayla Dunn PA-C 11/17/16 Pantoprazole (Protonix) 40 Mg Tab 40 MG PO DAILY, #30 TAB Prov: Shayla Dunn PA-C 11/17/16 Referrals Magdiel Zavaleta III, M.D. (PCP) Patient Instructions Acid Reflux, My [facility] Additional Instructions You have been treated in the Emergency Department your Abdominal Pain and reflux. Laboratory results and imaging studies have ruled out any emergent causes for your abdominal pain which would warrant admission or surgery. Please discontinue the use of ibuprofen as frequently as you have been using. In the future, always take ibuprofen as prescribed and with food. Acetaminophen(Tylenol) may be used for fever or pain. Use 1000mg every six hours as needed. Avoid using more than 3000mg in a 24 hour period. You may take Pepcid twice a day as prescribed as needed for worsening reflux symptoms. Take Protonix daily as prescribed. Consider sleeping with your head elevated at night. Sleep in a recliner or prop your head up on pillows. Avoid foods which may worsen reflux including red sauces, alcohol, chocolate, or acidic or spicy foods. Drink plenty of water and stay well hydrated. As with any trip to the Emergency Department, you should follow-up with your Primary Care Provider from today's visit. Please contact your surgeon regarding symptoms and treatment plan tomorrow morning. You should follow-up with them regarding abdominal wall incision pain. Return to the emergency department if your symptoms persist despite treatment plan outlined above or if the following symptoms occur: increased fevers, chills , worsening nausea/vomiting, blood in your stool or urine, vomiting blood, or other concerning symptoms. Problem Qualifiers Primary Impression: Gastritis Gastritis type: other gastritis Chronicity: acute Gastritis bleeding: presence of bleeding unspecified Qualified Codes: K29.00 - Acute gastritis without bleeding Additional Impression: GERD (gastroesophageal reflux disease) Esophagitis presence: without esophagitis Qualified Codes: K21.9 - Gastro- esophageal reflux disease without esophagitis
--- NOTE | 2016-11-17 15:41 | DIAGNOSTIC IMAGING REPORT ---
ABDOMEN LIMITED (US) HISTORY: Pain. Nausea. upper abdominal pain. COMPARISON: None. FINDINGS: Pancreas: The pancreas demonstrates a normal echotexture. Liver: Unremarkable. Gallbladder: No gallbladder wall thickening. No gallstones. CBD: 3 mm Right kidney: No hydronephrosis. IMPRESSION: No significant abnormality identified within the within the right upper quadrant. The above report was generated using voice recognition software. It may contain grammatical, syntax or spelling errors. Electronically signed by: Antonio Waters M.D. 11/17/2016 3:40 PM Dictated Date/Time: 11/17/2016 3:39 PM
[2016-11-17] MEDS ORDERED: GI COCKTAIL PO STA (15:56)
[2016-11-17] MEDS ORDERED: FAMOTIDINE 20MG/102 ML D5W IV STA (15:56)
[2016-11-17] MEDS ORDERED: IBUP-103 PO (15:58)
[2016-11-17] MEDS ORDERED: LIDOCAINE HCL 2% VISC SOLN 20 ML UDC ONE (16:02)
[2016-11-17] MEDS ORDERED: ALUMINUM/MAGNESIUM SUSP 30 ML UDC ONE (16:02)
[2016-11-17] MEDS ORDERED: FAMO20TA9 PO (16:37)
[2016-11-17] MEDS ORDERED: PANT40TA PO (16:37)
[2016-11-17 16:55] VITALS: BP 148/99; PULSE 70; TEMP 36.7; O2SAT 100
== END 2016-11-17 16:56 | disposition home or self-care (01) ==
LOC: C.EDB 14:00 → C.EDA 16:56
DX: K29.00 Acute gastritis without bleeding (principal); K21.9 Gastro-esophageal reflux disease without esophagitis; K57.92 Diverticulitis of intestine, part unspecified, without perforation or abscess without bleeding; E78.5 Hyperlipidemia, unspecified; I10 Essential (primary) hypertension; Z87.891 Personal history of nicotine dependence

== ENCOUNTER 2017-09-08 13:10 | Emergency (ER) | payer BC, OTHER ==
[~2017-09-08] VITALS: Ht 160 cm; Wt 59.6 kg
[~2017-09-08 13:10] MED LIST changes: -CIPR-255 PO; +FAMO20TA9 PO; +IBUP-103 PO; -METO50TA7 PO; +METO50TA8 PO; -MOME6000 INH
[2017-09-08 13:13] VITALS: Ht 160 cm; Wt 59.6 kg
[2017-09-08] MEDS ORDERED: SODIUM CHLORIDE 0.9% 1000ML 1,000 ML IV STA (13:27)
[2017-09-08] MEDS ORDERED: OPTIRAY 320 IV PRN (13:45)
[2017-09-08 14:11] LABS: BASO % 0.2 %; BASO ABS # 0.02 K/uL (0-0.2); EOS % 3.6 %; EOS ABS # 0.32 K/uL (0-0.5); HEMATOCRIT 43.7 % (37-47); HEMOGLOBIN 15.3 g/dL (12.0-16.0); IG# 0.02 K/uL (0.00-0.02); LYMPH % 27.5 %; LYMPH ABS # 2.47 K/uL (1.2-3.4); MEAN CELL VOLUME 83.7 fL (80-100); MEAN CORPUSCULAR HEMOGLOBIN 29.3 pg (25-34); MEAN PLATELET VOLUME 9.2 fL (7.4-10.4); MONO % 8.3 %; MONO ABS # 0.75 K/uL (0.11-0.59); NEUT % 60.2 %; NEUT ABS # 5.41 K/uL (1.4-6.5); PLATELET COUNT 283 K/uL (130-400); RED CELL DISTRIBUTION WIDTH CV 13.9 % (11.5-14.5); RED CELL DISTRIBUTION WIDTH SD 42.2 fL (36.4-46.3); WHITE BLOOD COUNT 8.99 K/uL (4.8-10.8)
[2017-09-08 14:33] LABS: ALBUMIN 3.7 gm/dl (3.4-5.0); CALCIUM 8.8 mg/dl (8.5-10.1); CREATININE 0.96 mg/dl (0.60-1.20); POTASSIUM 3.7 mmol/L (3.5-5.1); TOTAL PROTEIN 7.3 gm/dl (6.4-8.2)
--- NOTE | 2017-09-08 17:04 | DIAGNOSTIC IMAGING REPORT ---
ABDOMEN AND PELVIS CT WITH IV AND ORAL CONTRAST CT DOSE: 264.42 mGy.cm HISTORY: Acute left lower quadrant abdominal pain LLQ abd pain TECHNIQUE: Multiaxial CT images of the abdomen and pelvis were performed following the use of intravenous and oral contrast. A dose lowering technique was utilized adhering to the principles of ALARA. COMPARISON STUDY: CT abdomen and pelvis 05/06/2016. FINDINGS: Mild dependent subsegmental bibasilar atelectasis. No pneumatosis or pneumoperitoneum. Imaged inferior cardiac chambers are unremarkable. Gallbladder, liver, spleen, pancreas and adrenal glands are within normal limits. 8 mm low attenuating lesion of the superior pole left kidney suggests benign renal cyst. No renal calculi or obstructive uropathy. Ureters, bladder and uterus are within normal limits. Mild atherosclerosis of the aorta without aneurysm. No bulky adenopathy. No bowel obstruction identified. Postoperative changes from prior partial resection of the sigmoid colon with mild wall thickening at the anastomotic site. No associated inflammatory changes of the colon to suggest acute diverticulitis. Minimal colonic diverticulosis noted. Ill-defined central fluid collection measures 2.9 x 1.3 x 2.5 cm on image 273 series 3, also nicely seen on the sagittal reformatted images. The appendix appears normal as does the terminal ileum. No mesenteric inflammatory changes or ascites. Soft tissues and breast parenchyma appear unremarkable. Bones appear intact. Mild levoscoliosis of the lumbar spine. IMPRESSION: 1. Interval postoperative changes of the sigmoid colon from prior partial resection. Mild wall thickening at the anastomotic site is noted along with ill-defined presacral fluid collection measuring up to 2.9 cm in greatest dimension. This would favor a postoperative seroma with abscess thought to be less likely. 2. No bowel obstruction identified. Normal appendix. Electronically signed by: Ed Linares M.D. 09/08/2017 5:02 PM Dictated Date/Time: 09/08/2017 4:53 PM
--- NOTE | 2017-09-08 18:26 | EMERGENCY ROOM VISIT NOTE ---
History First contact with patient: 13:22 Chief Complaint: ABDOMINAL PAIN Stated Complaint: BOWEL DISCOMFORT Nursing Triage Summary: see triage note History of Present Illness The patient is a 57 year old female who presents to the Emergency Room via private vehicle with complaints of "bowel discomfort". The patient states that she has had for 1 week left lower quadrant abdominal pain with nausea. She states that this feels similar to previous diverticulitis. She has had a fever subjectively of 101F orally. She states that she has tried Bentyl. She denies any blood in the stool. Stool has been somewhat loose but no diarrhea. No recent antibiotics. Pain is rated in the left lower quadrant as a 5/10. No urinary symptoms. Review of Systems A complete 10-point Review of Systems was discussed with the patient, with pertinent positives and negatives listed in the History of Present Illness. All remaining Review of Systems questions can be considered negative unless otherwise specified. Past Medical/Surgical History Medical Problems: (1) Diverticulitis (2) Dyslipidemia (3) GERD (gastroesophageal reflux disease) (4) HTN (hypertension) Surgical Problems: (1) H/O wisdom tooth extraction (2) History of tubal ligation Social History Smoking Status: Former Smoker Drug Use: none Marital Status: single, Current/Historical Medications Scheduled Famotidine (Pepcid), 1 TAB PO BID Ibuprofen Tab (Advil), 400 MG PO UD Lisinopril (Prinivil), 20 MG PO HS Metoprolol Succ (Toprol Xl) (Toprol-Xl), 75 MG PO HS Scheduled PRN Alprazolam (Xanax), 0.5 MG PO TID PRN for Anxiety Dicyclomine Hcl (Bentyl), 10 MG PO QID PRN for abdominal pain Allergies Coded Allergies: No Known Allergies (Verified , 09/08/17) Physical Exam Vital Signs Date Time Temp Pulse Resp B/P (MAP) Pulse Ox O2 Delivery O2 Flow Rate FiO2 09/08/17 21:45 36.8 80 18 134/94 97 09/08/17 21:36 36.8 80 18 134/94 97 Room Air 09/08/17 20:13 81 18 135/77 97 Room Air 09/08/17 18:33 96 129/82 09/08/17 16:19 86 18 141/80 09/08/17 13:13 36.7 64 16 139/75 97 Room Air Physical Exam VITAL SIGNS - Vital signs and nursing notes were reviewed. Stable. GENERAL -this 57-year-old female is appearing her stated age who is in no acute distress. Communicates well with provider and answers questions appropriately. SKIN - Without rashes. No meningeal or petechial rash HEAD - NC/AT. EYES -Sclera anicteric. EARS - No deformities of external structures noted on gross examination bilaterally. NOSE - Midline and without cyanosis. No epistaxis or purulent drainage noted. MOUTH/OROPHARYNX - Without perioral cyanosis. NECK - Neck with FROM. LUNGS - Chest wall symmetric without accessory muscle use, intercostals retractions, or central cyanosis. Normal vesicular breath sounds CTA B/L. No wheezes, rales, or rhonchi appreciated. CARDIAC - RRR with S1/S2. No murmur, rubs, or gallops appreciated. ABDOMEN - Abdominal contour normal without pulsations or visible masses. BS normoactive all four quadrants. Left lower quadrant abdominal tenderness noted. No palpable masses, hepatosplenomegaly, or ascites noted. EXTREMITIES - No clubbing or peripheral cyanosis. NEUROLOGIC - Cranial nerves II through XII grossly intact. PSYCH - A&O, and cooperates fully with examiner. Pt is very pleasant and interacts well with examiner. Medical Decision & Procedures ER Provider Diagnostic Interpretation: ABDOMEN AND PELVIS CT WITH IV AND ORAL CONTRAST CT DOSE: 264.42 mGy.cm HISTORY: Acute left lower quadrant abdominal pain LLQ abd pain TECHNIQUE: Multiaxial CT images of the abdomen and pelvis were performed following the use of intravenous and oral contrast. A dose lowering technique was utilized adhering to the principles of ALARA. COMPARISON STUDY: CT abdomen and pelvis 05/06/2016. FINDINGS: Mild dependent subsegmental bibasilar atelectasis. No pneumatosis or pneumoperitoneum. Imaged inferior cardiac chambers are unremarkable. Gallbladder, liver, spleen, pancreas and adrenal glands are within normal limits. 8 mm low attenuating lesion of the superior pole left kidney suggests benign renal cyst. No renal calculi or obstructive uropathy. Ureters, bladder and uterus are within normal limits. Mild atherosclerosis of the aorta without aneurysm. No bulky adenopathy. No bowel obstruction identified. Postoperative changes from prior partial resection of the sigmoid colon with mild wall thickening at the anastomotic site. No associated inflammatory changes of the colon to suggest acute diverticulitis. Minimal colonic diverticulosis noted. Ill-defined central fluid collection measures 2.9 x 1.3 x 2.5 cm on image 273 series 3, also nicely seen on the sagittal reformatted images. The appendix appears normal as does the terminal ileum. No mesenteric inflammatory changes or ascites. Soft tissues and breast parenchyma appear unremarkable. Bones appear intact. Mild levoscoliosis of the lumbar spine. IMPRESSION: 1. Interval postoperative changes of the sigmoid colon from prior partial resection. Mild wall thickening at the anastomotic site is noted along with ill-defined presacral fluid collection measuring up to 2.9 cm in greatest dimension. This would favor a postoperative seroma with abscess thought to be less likely. 2. No bowel obstruction identified. Normal appendix. Electronically signed by: Ed Linares M.D. 09/08/2017 5:02 PM Dictated Date/Time: 09/08/2017 4:53 PM Laboratory Results 09/08/17 13:45 Red Blood Count 5.22, Mean Corpuscular Volume 83.7, Mean Corpuscular Hemoglobin 29.3, Mean Corpuscular Hemoglobin Concent 35.0, Mean Platelet Volume 9.2, Neutrophils (%) (Auto) 60.2, Lymphocytes (%) (Auto) 27.5, Monocytes (%) (Auto) 8.3, Eosinophils (%) (Auto) 3.6, Basophils (%) (Auto) 0.2, Neutrophils # (Auto) 5.41, Lymphocytes # (Auto) 2.47, Monocytes # (Auto) 0.75, Eosinophils # (Auto) 0.32, Basophils # (Auto) 0.02 09/08/17 13:45 Test 09/08/17 13:45 09/08/17 19:25 White Blood Count 8.99 K/uL (4.8-10.8) Red Blood Count 5.22 M/uL (4.2-5.4) Hemoglobin 15.3 g/dL (12.0-16.0) Hematocrit 43.7 % (37-47) Mean Corpuscular Volume 83.7 fL (80-100) Mean Corpuscular Hemoglobin 29.3 pg (25-34) Mean Corpuscular Hemoglobin Concent 35.0 g/dl (32-36) Platelet Count 283 K/uL (130-400) Mean Platelet Volume 9.2 fL (7.4-10.4) Neutrophils (%) (Auto) 60.2 % Lymphocytes (%) (Auto) 27.5 % Monocytes (%) (Auto) 8.3 % Eosinophils (%) (Auto) 3.6 % Basophils (%) (Auto) 0.2 % Neutrophils # (Auto) 5.41 K/uL (1.4-6.5) Lymphocytes # (Auto) 2.47 K/uL (1.2-3.4) Monocytes # (Auto) 0.75 K/uL (0.11-0.59) Eosinophils # (Auto) 0.32 K/uL (0-0.5) Basophils # (Auto) 0.02 K/uL (0-0.2) RDW Standard Deviation 42.2 fL (36.4-46.3) RDW Coefficient of Variation 13.9 % (11.5-14.5) Immature Granulocyte % (Auto) 0.2 % Immature Granulocyte # (Auto) 0.02 K/uL (0.00-0.02) Anion Gap 8.0 mmol/L (3-11) Est Creatinine Clear Calc Drug Dose 54.1 ml/min Estimated GFR () 76.6 Estimated GFR (Non- 66.1 BUN/Creatinine Ratio 14.3 (10-20) Calcium Level 8.8 mg/dl (8.5-10.1) Magnesium Level 2.2 mg/dl (1.8-2.4) Total Bilirubin 0.3 mg/dl (0.2-1) Aspartate Amino Transf (AST/SGOT) 18 U/L (15-37) Alanine Aminotransferase (ALT/SGPT) 26 U/L (12-78) Alkaline Phosphatase 59 U/L (45-117) Total Protein 7.3 gm/dl (6.4-8.2) Albumin 3.7 gm/dl (3.4-5.0) Globulin 3.6 gm/dl (2.5-4.0) Albumin/Globulin Ratio 1.0 (0.9-2) Lipase 187 U/L (73-393) Urine Color YELLOW Urine Appearance CLEAR (CLEAR) Urine pH 7.5 (4.5-7.5) Urine Specific Circle 1.038 (1.000-1.030) Urine Protein NEG (NEG) Urine Glucose (UA) NEG (NEG) Urine Ketones NEG (NEG) Urine Occult Blood NEG (NEG) Urine Nitrite NEG (NEG) Urine Bilirubin NEG (NEG) Urine Urobilinogen NEG (NEG) Urine Leukocyte Esterase NEG (NEG) Medications Administered Medications (Trade) Dose Ordered Sig/Ignacio Route Start Time Stop Time Status Last Admin Dose Admin Sodium Chloride 1,000 ml @ 999 mls/hr Q1H1M STAT IV 09/08/17 13:27 09/08/17 14:27 DC 09/08/17 14:01 999 MLS/HR Medical Decision Patient was seen and evaluated as above in room B 10. She presents to us today with left lower quadrant abdominal pain. She is nontoxic on exam. Review was performed of nursing notes and vital signs. After obtaining a thorough history and physical examination the above work up was performed. CBC reveals no concerning leukocytosis or anemia. No concerning metabolic abnormality. CT scan was obtained secondary to patient's presentation with results as above. There is a seroma with wall thickening of the anastomotic site. I spoke with our local general surgeon, Dr. Rizzo who recommended transfer to the facility where she had a recent surgery one year ago. I spoke with Dr. Malcolm, at [facility]. We discussed the case and decided transfer would be best. Patient will be transferred via ambulance at this time for continued care and management. Patient was in agreement. She was given fluids here. I did not administer antibiotics secondary to her afebrile state currently, her white blood cell count, minimal abdominal pain as time progressed and felt this would be best decided at the transfer facility pending upon management. The patient was educated upon management, had questions answered prior to discharge, and was discharged home in good condition. Case was discussed with the attending physician. In the evaluation and treatment of this patient the following differential diagnoses were entertained: Diverticulitis, abscess, constipation, among others Impression Primary Impression: Left lower quadrant pain Additional Impression: Seroma Departure Information Dispostion Transfer Acute Care Facility Condition GOOD Referrals Magdiel Zavaleta III, M.D. (PCP) Patient Instructions [facility] Problem Qualifiers
[2017-09-08 21:45] VITALS: BP 134/94; PULSE 80; TEMP 36.8; O2SAT 97
== END 2017-09-08 21:46 | disposition short-term general hospital (02) ==
LOC: C.EDB 13:11
DX: R10.32 Left lower quadrant pain (principal); K91.872 Postprocedural seroma of a digestive system organ or structure following a digestive system procedure; I10 Essential (primary) hypertension; E78.5 Hyperlipidemia, unspecified; Z87.891 Personal history of nicotine dependence; Z79.899 Other long term (current) drug therapy